=== PATIENT | female | born 1950 | race Caucasian/White ===

== ENCOUNTER 2017-12-11 10:18 | Outpatient (CLI) | payer MEDICARE, MEDICAID, SELFPAY ==
--- NOTE | 2017-12-11 10:10 | DI.REPORT_ITS ---
SYMPTOM/DIAGNOSIS: CHRONIC RT SIDED LOW BACK PAIN WITHOUT SCIATICA, M54.5 LUMBAR SPINE: AP, lateral and bilateral oblique views. There are five lumbar type vertebral bodies. There is normal alignment. No spondylolysis or spondylolisthesis is seen. Mild disc space narrowing is seen at L 3-4 and L 4-5. There are endplate osteophytes throughout the lumbar spine. Mild degenerative changes of the facets are seen at L 4-5 and L 5-S 1. Surgical clips are seen in the right upper quadrant of the abdomen. IMPRESSION: Mild degenerative changes of the lumbar spine.
== END 2017-12-11 10:19 ==
PROVIDERS: PCP Family Medicine; Visit Provider Internal Medicine
DX: M54.5 Low back pain (principal); G89.29 Other chronic pain; M47.817 Spondylosis without myelopathy or radiculopathy, lumbosacral region; M25.78 Osteophyte, vertebrae
CPT/HCPCS: 72110

== ENCOUNTER 2018-04-19 00:51 | Outpatient (CLI) | payer MEDICARE, MEDICAID, SELFPAY ==
--- NOTE | 2018-04-19 07:01 | MERGE_ITS ---
*[facility]* *[facility]* [address] [place] [address] Date of study: 04/19/2018 Transthoracic Echocardiography M-mode, complete 2D, complete spectral Doppler, and color Doppler *STUDY CONCLUSIONS* Summary: 1. Left ventricle: The cavity size was normal. Systolic function was normal. The estimated ejection fraction was 55-60%. Diastolic parameters were normal. There was no evidence of elevated ventricular filling pressure by Doppler parameters. 2. Mitral valve: There was mild regurgitation. 3. Right ventricle: The cavity size was normal. Wall thickness was normal. Systolic function was normal. 4. Atrial septum: No defect or patent foramen ovale was identified. 5. Pulmonary arteries: Pulmonary systolic pressure was in the range of 15mm Hg to 25mm Hg. 6. Inferior vena cava: The vessel was patent and normal in size. The respirophasic diameter changes were in the normal range (greater than or equal to 50%), consistent with normal central venous pressure. *PATIENT PRESENTATION* Height: 160cm ((63in) ) S/D Pressure: 122 / 76 Weight: 75.3kg ((165.7lb) ) BSA: 1.85m^2 Test start time: 07:46 AM. Test stop time: 08:40 AM. ORDERING Marino Swartz REFERRING Marino Swartz PERFORMING [facility] SPECIAL PROCEDURE TECH RT Joaquim (R)(PATRICK)CARIN *PROCEDURE DATA* Procedure information: The patient was identified by two identifiers. This study was interpreted by [facility]. Pertinent images and digital data are archived for permanent storage and are available for subsequent review. No prior study was available for comparison. Study status: Routine. Transthoracic echocardiography. M-mode, complete 2D, complete spectral Doppler, and color Doppler. A Transthoracic Echocardiogram was performed. Scanning was performed from the parasternal, apical, subcostal, and suprasternal notch acoustic windows. Images were obtained using an [id number] cardiac ultrasound machine. Image quality was adequate. Study completion: The patient tolerated the procedure well. History: PMH: Afib. *CARDIAC ANATOMY* Left ventricle: The cavity size was normal. Systolic function was normal. The estimated ejection fraction was 55-60%. The tissue Doppler parameters were normal. Diastolic parameters were normal. There was no evidence of elevated ventricular filling pressure by Doppler parameters. Aortic valve: Trileaflet. Doppler: There was no stenosis. There was no regurgitation. VTI ratio of LVOT to aortic valve: 0.64. Valve area (VTI): 1.9cm^2. Indexed valve area (VTI): 1cm^2/m^2. Peak velocity ratio of LVOT to aortic valve: 0.62. Valve area (Vmax): 1.8cm^2. Indexed valve area (Vmax): 1cm^2/m^2. Mean velocity ratio of LVOT to aortic valve: 0.73. Valve area (Vmean): 2.1cm^2. Indexed valve area (Vmean): 1.2cm^2/m^2. Mean gradient (S): 4.3mm Hg. Peak gradient (S): 9.3mm Hg. Aorta: Aortic root: The aortic root was normal in size. Ascending aorta: The ascending aorta was normal in size. Mitral valve: Doppler: There was no evidence for stenosis. There was mild regurgitation. Valve area by pressure half-time: 3.7cm^2. Indexed valve area by pressure half-time: 2cm^2/m^2. Left atrium: The atrium was normal in size. Atrial septum: No defect or patent foramen ovale was identified. Right ventricle: The cavity size was normal. Wall thickness was normal. Systolic function was normal. Pulmonic valve: Doppler: There was no evidence for stenosis. There was mild regurgitation. Peak gradient (S): 2.5mm Hg. Tricuspid valve: Doppler: There was mild regurgitation. Pulmonary artery: Poorly visualized. Pulmonary systolic pressure was in the range of 15mm Hg to 25mm Hg. Right atrium: The atrium was normal in size. Pericardium: There was no pericardial effusion. Systemic veins: Inferior vena cava: Well visualized. The vessel was patent and normal in size. The respirophasic diameter changes were in the normal range (greater than or equal to 50%), consistent with normal central venous pressure. Baseline ECG: Normal sinus rhythm. Measurements Left ventricle Value Reference LV ID, ED, PLAX 4.5 cm 3.5 - 6.0 LV ID, ES, PLAX 3.3 cm 2.1 - 4.0 LV PW thickness, ED, PLAX 0.9 cm LV end-diastolic volume, 1-p A2C 73 ml LV ejection fraction, 1-p A2C 59 % LV end-diastolic volume, 1-p A4C 75 ml LV ejection fraction, 1-p A4C 52 % LV e', lateral 0.092 m/sec LV E/e', lateral 8 LV e', medial 0.081 m/sec LV E/e', medial 9 LV e', average 0.086 m/sec LV E/e', average 8 Ventricular septum Value Reference IVS thickness, ED, PLAX 0.9 cm LVOT Value Reference LVOT ID, A-P 1.9 cm LVOT area 2.9 cm^2 LVOT peak velocity, S 0.94 m/sec LVOT mean velocity, S 0.69 m/sec LVOT VTI, S 21.2 cm LVOT peak gradient, S 3.5 mm Hg LVOT mean gradient, S 2.1 mm Hg Stroke volume (SV), LVOT DP 62 ml Stroke index (SV/bsa), LVOT DP 34 ml/m^2 Aortic valve Value Reference Aortic valve peak velocity, S 1.5 m/sec Aortic valve mean velocity, S 0.95 m/sec Aortic valve VTI, S 33.0 cm Aortic mean gradient, S 4.3 mm Hg Aortic peak gradient, S 9.3 mm Hg VTI ratio, LVOT/AV 0.64 Aortic valve area, VTI 1.9 cm^2 Velocity ratio, peak, LVOT/AV 0.62 Aortic valve area, peak velocity 1.8 cm^2 Velocity ratio, mean, LVOT/AV 0.73 Aortic valve area, mean velocity 2.1 cm^2 Aortic valve area/bsa, mean velocity 1.2 cm^2/m^2 Aorta Value Reference Aortic root ID, ED 2.6 cm Ascending aorta ID, A-P, S 3.1 cm Left atrium Value Reference LA ID, A-P, ES 3.3 cm LA ID/bsa, A-P 1.8 cm/m^2 <=2.2 LA area, ES, A4C 16 cm^2 8.8 - 23.4 LA area, ES, A2C 16 cm^2 LA volume/bsa, ES, 1-p A4C 23 ml/m^2 LA volume, ES, 2-p 39 ml LA volume/bsa, ES, 2-p 21 ml/m^2 LA/aortic root ratio 1.27 Mitral valve Value Reference Mitral E-wave peak velocity 0.7 m/sec Mitral A-wave peak velocity 0.8 m/sec Mitral deceleration time 204 ms 150 - 230 Mitral pressure half-time 59 ms Mitral E/A ratio, peak 0.88 Mitral valve area, PHT, DP 3.7 cm^2 Pulmonary veins Value Reference Pulmonary vein peak velocity, S 0.47 m/sec Pulmonary vein peak velocity, D 0.35 m/sec Pulmonary vein velocity ratio, peak, 1.35 S/D Pulmonary vein A-wave reversal peak 0.33 m/sec velocity Pulmonary vein A-wave reversal 133 ms duration Tricuspid valve Value Reference Tricuspid regurg peak velocity 2.2 m/sec Tricuspid peak RV-RA gradient 18.9 mm Hg Right atrium Value Reference RA area, ES, A4C 11.1 cm^2 8.3 - 19.5 Pulmonic valve Value Reference Pulmonic peak gradient, S 2.5 mm Hg Legend: (L) and (H) tammy values outside specified reference range. I have personally reviewed the images and have reviewed and edited the reported findings. Electronically signed by Vazquez Ibrahim MD 04/19/2018 10:16
== END 2018-04-19 01:11 ==
PROVIDERS: PCP Family Medicine; Visit Provider Family Medicine
DX: I48.91 Unspecified atrial fibrillation (principal); I34.0 Nonrheumatic mitral (valve) insufficiency
CPT/HCPCS: 93225; 93306

== ENCOUNTER 2018-04-19 02:47 | Outpatient (CLI) | payer MEDICARE, MEDICAID, SELFPAY ==
--- NOTE | 2018-05-11 10:25 | ZIOP_ITS ---
ZIO PATCH REPORT DATE OF DICTATION May 11, 2018 INDICATION Muscle weakness. ANALYSIS TIME 11 days and 12 hours. FINDINGS Predominant underlying rhythm is sinus rhythm. Average heart rate 77 beats per minute. Minimum heart rate 52 beats per minute. Max heart rate 126 beats per minute. First-degree AV block present throughout. 4 short bursts of SVT. The longest lasting 6 beats. Otherwise rare isolated atrial ectopy. Rare isolated ventricular ectopy. No nonsustained VT. No significant pauses or jose luis arrhythmias. No patient triggered events and no diary entries. Artur Lira M.D. VINCE/maria de jesus T-05/11/2018
== END 2018-04-19 03:07 ==
PROVIDERS: PCP Family Medicine; Visit Provider Family Medicine
DX: M62.81 Muscle weakness (generalized) (principal); I44.0 Atrioventricular block, first degree; I47.1 Supraventricular tachycardia
CPT/HCPCS: 93225

== ENCOUNTER 2018-05-11 09:59 | Outpatient (CLI) | payer MEDICARE, MEDICAID, SELFPAY | END 2018-05-11 10:19 | PROVIDERS: PCP Family Medicine; Referring Provider Family Medicine; Visit Provider Internal Medicine Cardiovascular Disease | DX: M62.81 Muscle weakness (generalized) (principal); I44.0 Atrioventricular block, first degree; I47.1 Supraventricular tachycardia | CPT/HCPCS: 0298T ==

== ENCOUNTER 2018-06-07 01:01 | Outpatient (CLI) | payer MEDICARE, MEDICAID, SELFPAY ==
[2018-06-07 12:24] LABS: CREATININE 0.64 mg/dL (0.55-1.02)
== END 2018-06-07 01:21 ==
PROVIDERS: PCP Family Medicine; Visit Provider Family Medicine
DX: I48.91 Unspecified atrial fibrillation (principal)
CPT/HCPCS: 36415; 82565

== ENCOUNTER 2018-10-08 07:24 | Outpatient (CLI) | payer MEDICARE, MEDICAID, SELFPAY ==
--- NOTE | 2018-10-08 13:30 | DI.MAMMO_ITS ---
SYMPTOM/DIAGNOSIS: SCREENING BILATERAL SCREENING MAMMOGRAM: Mammograms were interpreted according to the usual protocol including computer analysis with CAD system, tomosynthesis and C view imaging. Comparison is made with exams from 2014 through 2018. The breasts are composed of extremely dense fibroglandular tissue, breast density Category D. No suspicious masses or suspicious microcalcifications are seen. There has been no significant change. IMPRESSION: Category 1, negative mammogram. Yearly screening mammography is recommended. Breast density category D. SA ASSESSMENT OF FINDINGS: Negative. Category 1. Patient will receive a letter notifying them of these results. BI-RADS category D. The breasts are extremely dense, which lowers the sensitivity of mammography.
== END 2018-10-08 07:44 ==
PROVIDERS: PCP Family Medicine; Visit Provider Family Medicine
DX: Z12.31 Encounter for screening mammogram for malignant neoplasm of breast (principal)
CPT/HCPCS: 77063; 77067

== ENCOUNTER 2019-04-09 08:52 | Outpatient (CLI) | payer MEDICARE, SELFPAY ==
[2019-04-09 10:18] LABS: Absolute Basophil Count 0.06 k/cumm (0.0-0.2); Absolute Lymphocyte Count 2.67 k/cumm (1.2-3.4); Absolute Monocyte Count 0.61 k/cumm (0.11-0.7); Basophils % 1.1; Eosinophils % 3.6; HCT 45.3 % (36.0-46.0); HGB 14.4 g/dL (12.0-15.5); Lymphocytes % 48.2; Mean Corp. HGB Concentration 31.8 g/dL (32.0-36.0); Mean Corpuscular Hemoglobin 32.4 pg (27.0-33.0); Mean Platelet Volume 10.6 fL (8.0-11.0); Neutrophils % 36.1; Platelet Count 188 x1000/uL (130-400); RBC 4.44 m/cumm (4.00-5.20); White Blood Cell Count 5.54 k/cumm (4.4-10.8)
[2019-04-09 10:58] LABS: Anion Gap 6.4 mmol/L (3-11); BUN 11 mg/dL (7-18); CO2 32.6 mmol/L (21.0-32.0); CREATININE 0.64 mg/dL (0.55-1.02); Calcium 9.3 mg/dL (8.5-10.1); Calculated LDL 142 mg/dL; Chloride 105 mmol/L (98-107); Cholesterol 236 mg/dL (<200); Glucose 101 mg/dL (74-106); HDL Cholesterol 57 mg/dL (40-60); Sodium 144 mmol/L (136-145); Triglyceride 187 mg/dL (<150)
== END 2019-04-09 09:12 ==
PROVIDERS: PCP Family Medicine; Visit Provider Family Medicine
DX: E78.5 Hyperlipidemia, unspecified (principal); R42 Dizziness and giddiness
CPT/HCPCS: 36415; 80048; 80061; 85025

== ENCOUNTER 2019-10-31 01:24 | Outpatient (CLI) | payer MEDICARE, SELFPAY ==
--- NOTE | 2019-10-31 11:00 | DI.MAMMO_ITS ---
EXAM: MG MAMMO SCREENING CLINICAL HISTORY: screening Z12.39 TECHNIQUE: Mammograms were interpreted according to the usual protocol including computer analysis w [employer] CAD system, tomosynthesis and C-view imaging. COMPARISON: FINDINGS: The breasts are heterogeneously dense. No dominant mass or clumped microcalcification is identified in either breast. Current examination is compared with previous examinations including September 2018 and there has no gross interval change appearance comparison previous studies. IMPRESSION: No specific evidence of malignancy at this time. Routine screening examinations are suggested at yea rly intervals this age according to the ACS ACR guidelines BI-RADS Category 1 - Negative Breast Density - Category C - Heterogeneously dense
== END 2019-10-31 01:44 ==
PROVIDERS: PCP Family Medicine; Visit Provider Family Medicine
DX: Z12.31 Encounter for screening mammogram for malignant neoplasm of breast (principal)
CPT/HCPCS: 77063; 77067

== ENCOUNTER → 2019-11-01 08:42 | Outpatient (BNVA) | payer MEDICARE, SELFPAY | PROVIDERS: PCP Family Medicine; Referring Provider Family Medicine; Visit Provider Physical Therapy Assistant | DX: R19.4 Change in bowel habit (principal) | CPT/HCPCS: 99203 ==

== ENCOUNTER 2019-11-02 14:21 | Outpatient (REF) | payer MEDICARE, SELFPAY ==
[2019-11-05 12:00] LABS: Campylobacter PCR Negative (Negative); Salmonella PCR Negative (Negative); Shiga Toxin PCR Negative (Negative); Shigella/Enteroinvasive Ecoli Negative (Negative)
== END 2019-11-02 14:41 ==
LOC: LBN 14:21
PROVIDERS: PCP Family Medicine; Visit Provider Physical Therapy Assistant
DX: R19.4 Change in bowel habit (principal)
CPT/HCPCS: 87505; 87177

== ENCOUNTER 2020-01-24 19:51 | Emergency (ER) | payer MEDICARE, SELFPAY ==
[2020-01-24] VITALS (25 sets, daily range): BP systolic 99–134; BP diastolic 62–97; PULSE 62–83; RESP 9–30; TEMP 36.9; O2SAT 88–97
--- NOTE | 2020-01-24 19:45 | DI.CT_ITS ---
EXAM: CT ABDOMEN PELVIS W CLINICAL HISTORY: abdominal pain and diarrhea TECHNIQUE: Imaging Protocol: Axial computed tomography images with coronal and sagittal reformatted images were created and reviewed CONTRAST MATERIAL: Intravenous: Omnipaque 350 Contrast volume:100 mL Oral: Yes COMPARISON: No exams were available for comparison FINDINGS: ABDOMEN: Lung Bases: Normal where visualized. Liver: Normal density. No measurable mass. Portal, Superior Mesenteric, and Splenic Veins: Unremarkable. Gallbladder and Biliary Tract: Status post cholecystectomy. No significant biliary ductal dilatation . Pancreas: Normal density, no abnormal calcifications or inflammatory process. Spleen: Normal. Adrenals: No masses seen. Kidneys: Normal size, contour and axis. No radiodense stones or obstructive uropathy. No masses seen. Abdominal Aorta: Abdominal portion non-dilated. Minimal atherosclerosis. Bowel: No evidence of obstruction. Mild bowel wall thickening seen in the sigmoid colon suggesting c olitis. No evidence of diverticulosis. No evidence of acute appendicitis. Peritoneal Cavity: No ascites or focal fluid collection. Mild mesenteric edema. Lymph Nodes: Within normal limits. Bones: Degenerative changes. Soft Tissues: Unremarkable. PELVIS: Bladder: Symmetric distention, no gross wall thickening. Reproductive Organs: Status post hysterectomy. Lymph Nodes: Within normal limits. Bones: Negative changes. IMPRESSION: Mild sigmoid colitis. RADIATION DOSE DELIVERED: 893.33mGy.cm Total DLP DATA REPOSITORY: All CT scans at this facility are submitted to the National Radiology Data Registry (NRDR) Dose Index Registry (DIR) with the [employer] (ACR). RADIATION OPTIMIZATION: All CT scans at this facility use at least one of these dose optimization te chniques: automated exposure control; mA and/or kV adjustment per patient size (includes targeted exa ms where dose is matched to clinical indication); or iterative reconstruction.
--- NOTE | 2020-01-24 20:20 | NUR.NOTE ---
Nursing Note: Started drinking PO contrast.
[2020-01-24 20:26] LABS: Absolute Basophil Count 0.05 10^3/uL (0.0-0.2); Absolute Eosinophil Count 0.15 10^3/uL (0.0-0.7); Absolute Lymphocyte Count 1.43 10^3/uL (1.2-3.4); Absolute Monocyte Count 0.46 10^3/uL (0.1-0.8); Absolute Neutrophil Count 2.67 10^3/uL (1.2-6.7); Basophils % 1.1; Eosinophils % 3.2; HCT 44.8 % (36.0-46.0); HGB 14.5 g/dL (11.2-15.7); MCH 32.4 pg (27.0-33.0); MCHC 32.4 % (32.0-36.0); MCV 100.2 fL (80-95); MPV 10.5 fL (8.0-11.0); Monocytes % 9.7; Nucleated RBC 0 %; Platelet Count 172 10^3/uL (130-400); RBC 4.47 10^6/uL (3.93-5.22); RDW 12.7 % (11.7-14.6); RDW-SD 47.1 fL; WBC 4.76 10^3/uL (4.4-10.8)
[2020-01-24] MEDS: Normal Saline 1,000 ML 1000 ML IV (20:31)
[2020-01-24] MEDS: Ondansetron 4 MG/2 ML VIAL IVP (20:32)
[2020-01-24 20:36] LABS: Bilirubin Negative (Negative); Blood Negative (Negative); Clarity Clear (Clear); Glucose Negative (Negative); Ketones Negative (Negative); Leukocyte Esterase Negative (Negative); Nitrite Negative (Negative); Specific Gravity <= 1.005 (1.005-1.025); Urobilinogen 0.2 EU/dL (Up TO 0.2)
[2020-01-24 20:39] LABS: ALT 28 U/L (14-59); AST 20 U/L (15-37); Albumin 3.5 g/dL (3.4-5.0); Alkaline Phosphatase 179 U/L (46-116); Anion Gap 7.4 mmol/L (3-11); BUN 15 mg/dL (7-18); Bilirubin, Total 0.4 mg/dL (0.2-1.0); CO2 28.6 mmol/L (21.0-32.0); CREATININE 0.88 mg/dL (0.55-1.02); Calcium 9.3 mg/dL (8.5-10.1); Chloride 105 mmol/L (98-107); Glucose 113 mg/dL (74-106); Lipase 99 U/L (73-393); Magnesium 2.4 mg/dL (1.8-2.4); Potassium 3.6 mmol/L (3.5-5.1); Sodium 141 mmol/L (136-145); Total Protein 7.1 g/dL (6.4-8.2)
[2020-01-24] MEDS: Normal Saline Flush 10 ML SYR IVP (21:30)
[2020-01-24] MEDS: Omnipaque 350 MG/ML 100 ML BTL IJ (21:41)
[2020-01-24] MEDS: Normal Saline - Diluent 50 ML VIAL IV (21:41)
[2020-01-24] MEDS: Omnipaque 350 MG/ML 50 ML BTL PO (21:42)
[2020-01-24] MEDS: Breeza Beverage 473 ML BTL PO ×2 (21:42→21:43)
--- NOTE | 2020-01-24 22:10 | NUR.NOTE ---
Nursing Note: Patient ambulated to the bathroom without difficulty. Urine and stool were mixed in the hat. No darleen red blood noted . Stool was diarrhea. Will give patient supplies to collect stool specimen at home.
--- NOTE | 2020-01-24 22:11 | ED.GENADUL_ITS ---
Discharge Plan Disposition Patient Disposition: HOME Condition: Fair Discharge Details Clinical Impression: Colitis Primary Care Provider: Marino Swartz ED Provider: Zoë Molina Home Meds and New Rx's Prescriptions: New ciprofloxacin HCl 500 mg tablet 500 mg PO BID Qty: 12 RF: 0 metronidazole [Flagyl] 500 mg tablet 500 mg PO TID Qty: 18 RF: 0 Continued Eliquis 5 mg tablet 5 mg PO BID Qty: 180 RF: 3 multivitamin [Once Daily] 1 EACH tablet 1 ea PO DAILY RF: 0 cyanocobalamin (vitamin B-12) [Vitamin B-12] 1,000 MCG tablet 1,000 mcg PO DAILY RF: 0 omega-3 fatty acids-fish oil 1 EACH capsule 2 ea PO DAILY RF: 0 calcium carbonate-vitamin D3 [Caltrate with Vitamin D3] 1 EACH tablet 1 ea PO DAILY RF: 0 omeprazole 20 mg capsule,delayed release(DR/EC) 20 mg PO DAILY Qty: 90 RF: 3 cholecalciferol (vitamin D3) [Vitamin D3] 2,000 UNIT capsule 4,000 units PO DAILY RF: 0 Discharge Instructions Instructions: Colitis (ED) Additional Instructions: Take antibiotics as prescribed even if you feel better Collect stool as instructed and bring to lab as directed Drink at least 8 glasses of water daily to stay well-hydrated Return sooner for new or worsening symptoms Referrals: Ivanna Lyn DO [OSTEOPATHIC DOCTOR] - Medical Decision Making Patient presents with symptoms consistent with diverticulitis/colitis. IV is established given IV fluid bolus of normal saline Zofran 4 mg given for nausea. Routine lab and CAT scan ordered with oral and IV contrast. labs reviewed, CAT scan does show mild sigmoid colitis. tolerating good PO. will discharge home on cipro/flagyl Medical Records Medical records reviewed: Yes I reviewed the patient's medical records. Lab Data Lab results reviewed: Yes I reviewed the patient's lab results. Lab results narrative: Laboratory Results - last 24 hr 01/24/20 01/24/20 01/24/20 20:00 20:15 20:15 WBC 4.76 RBC 4.47 Hgb 14.5 Hct 44.8 MCV 100.2 H MCH 32.4 MCHC 32.4 RDW 12.7 Plt Count 172 MPV 10.5 Immature Gran % 0.0 Neutrophils % 56.0 Lymphocytes % 30.0 Monocytes % 9.7 Eosinophils % 3.2 Basophils % 1.1 Nucleated RBC % 0 Absolute Neutrophils 2.67 Absolute Lymphocytes 1.43 Absolute Monocytes 0.46 Absolute Eosinophils 0.15 Absolute Basophils 0.05 Sodium 141 Potassium 3.6 Chloride 105 Carbon Dioxide 28.6 Anion Gap 7.4 BUN 15 Creatinine 0.88 Estimated GFR/1.73 m2 >= 60.00 Glucose 113 H Calcium 9.3 Magnesium 2.4 Total Bilirubin 0.4 AST 20 ALT 28 Alkaline Phosphatase 179 H Total Protein 7.1 Albumin 3.5 Lipase 99 Urine Color Yellow Urine Clarity Clear Urine pH 6.0 Ur Specific Deloit <= 1.005 Urine Protein Negative Urine Ketones Negative Urine Blood Negative Urine Nitrite Negative Urine Bilirubin Negative Urine Urobilinogen 0.2 Ur Leukocyte Esterase Negative Urine Glucose Negative HPI General Date/Time Provider Initiated Documentation: 01/24/20 19:54 . Information obtained by: patient . HPI Narrative: Patient presents with several day history of diarrhea abdominal cramping distention and nausea. She has had no fevers. She states she has had GI issues in the past and did see [facility] but did not have any colonoscopy or further testing. She reports that she is now starting to have bloody diarrhea. Most of her pain is left sided. She has no recent sick contacts with similar symptoms. Related Data Home Medications Medication Instructions Recorded Confirmed calcium carbonate-vitamin D3 1 ea PO DAILY 11/23/12 01/24/20 [Caltrate with Vitamin D3] cyanocobalamin (vitamin B-12) 1,000 mcg PO DAILY 11/23/12 01/24/20 [Vitamin B-12] multivitamin [Once Daily] 1 ea PO DAILY 11/23/12 01/24/20 omega-3 fatty acids-fish oil 2 ea PO DAILY 11/23/12 01/24/20 cholecalciferol (vitamin D3) 4,000 units PO DAILY 02/04/13 01/24/20 [Vitamin D3] omeprazole 20 mg capsule,delayed 20 mg PO DAILY #90 tab-cap 06/15/19 01/24/20 release apixaban 5 mg tablet 5 mg PO BID #180 tab 12/11/19 01/24/20 ciprofloxacin HCl 500 mg PO BID #12 tab 01/24/20 metronidazole [Flagyl] 500 mg PO TID #18 tab 01/24/20 Previous Rx's Medication Instructions Recorded omeprazole 20 mg capsule,delayed 20 mg PO DAILY #90 tab-cap 06/15/19 release apixaban 5 mg tablet 5 mg PO BID #180 tab 12/11/19 ciprofloxacin HCl 500 mg PO BID #12 tab 01/24/20 metronidazole [Flagyl] 500 mg PO TID #18 tab 01/24/20 Allergies Allergy/AdvReac Type Severity Reaction Status Date / Time codeine Allergy Severe Anaphylaxsi Verified 01/24/20 20:11 s gabapentin Allergy Severe Decreased Verified 01/24/20 20:11 level of consciousness baclofen AdvReac Severe SEVERE Verified 01/24/20 20:11 MUSCLE WEAKNESS prednisone AdvReac Severe DIARRHEA Verified 01/24/20 20:11 lamotrigine [From Lamictal] AdvReac Intermediate GI Upset, Verified 01/24/20 20:11 Diarrhea General Stated Complaint: Abd Prob VENUS: 2 Review of Systems Constitutional Constitutional: Reports system reviewed and no additional complaints, except as documented Gastrointestinal Gastrointestinal: Reports hematochezia, Denies constipation, Reports diarrhea, Reports loose stools, Reports nausea and Denies vomiting Genitourinary Genitourinary: Denies dysuria Musculoskeletal Musculoskeletal: Denies back pain [facility] Medical History Cataract Dizziness Fatigue GERD (gastroesophageal reflux disease) Granuloma annulare Myotonic muscular dystrophy SHANNAN (obstructive sleep apnea) Tinnitus Surgical History Cholecystectomy Colonoscopy - [facility] (01/22/16) 01/14/11; DR. FAUSTIN Extraction of cataract (02/01/13) 02/01/13; RIGHT 01/27/15; LEFT Tonsillectomy Vaginal hysterectomy partial colectomy due to endometriosis Family History Mother , 85 Essential hypertension Heart disease Hyperlipidemia Father , 71 Neoplasm LUNG Myotonic muscular dystrophy Brother Essential hypertension Hyperlipidemia Diverticulosis Grandfather Heart disease Myocardial infarction Grandmother Heart disease Grandmother Myotonic muscular dystrophy STRONG PATERNAL HISTORY Myotonic muscular dystrophy UNCLES, AUNTS, BROTHERS AND COUSINS Brother No problems noted. Brother High cholesterol Social History Smoking/Tobacco Use Status: Former Tobacco Use Quit Date: 03/01/07 Alcohol Intake: current Alcohol Intake frequency: holidays/special occasions only Alcohol type: beer Drug use: Never Substance use type: does not use Caregiver/Support person: No Housing: house Communication Needs: None Do you need help understanding health information?: Rarely Pets and animals: Yes Pets and animals: cat(s) and dog(s) Do you think of yourself as: lesbian/palacois/homosexual What is your relationship status?: never How often do you talk on the phone with friends or family?: three or more times per week Do you belong to any clubs or organized social groups?: yes Panel score (0-1 are the most socially isolated patients): 2 What type of physical activity do you participate in: other Details: aquatic therapy Duration: 45-60 minutes/day Frequency: 1-2 times per week Veda/Voodoo: Synagogue Special veda needs: No Seatbelt use: always Drive intox or ride w/intox contract driver: No Do you feel safe at home: Yes Do you feel safe in your relationship?: Yes Exam Const General: cooperative, healthy appearing, comfortable and no acute distress Nutritional Appearance: average body habitus Orientation: alert, awake and oriented x3 HENMT Head: normal to inspection, normocephalic and atraumatic Mouth: oral mucosae normal Resp Effort & Inspection: normal respiratory effort Auscultation: clear to auscultation bilaterally Cardio Rate: regular rate Rhythm: regular rhythm GI Inspection: distended Palpation: soft Auscultation: normal bowel sounds Skin General skin exam: no rashes or lesions noted Neuro General: patient alert, patient awake and patient oriented x3 Course Vital Signs Vital signs: Vital Signs Temperature 36.9 C 01/24/20 20:03 Pulse 83 01/24/20 20:03 Respiratory Rate 16 01/24/20 20:03 Blood Pressure 134/75 01/24/20 20:03 Pulse Oximetry 97 01/24/20 20:03 Temperature 36.9 C 01/24/20 20:03 Temperature Source Oral 01/24/20 20:03 Pulse 62 01/24/20 21:16 Pulse 63 01/24/20 21:20 Respiratory Rate 13 01/24/20 21:20 Respiratory Effort Non-Labored 01/24/20 20:09 Blood Pressure 107/80 01/24/20 21:16 Blood Pressure Mean 86 01/24/20 21:16 Blood Pressure Position Sitting 01/24/20 20:03 Pulse Oximetry 96 01/24/20 21:20 Oxygen Delivery Method Room Air 01/24/20 20:03 Oxygen Flow Rate 0 01/24/20 20:03 Pain Level 5 01/24/20 20:03 Lab/Test Results Lab/Test Results: Laboratory Tests Range/Units 01/24/20 01/24/20 01/24/20 20:00 20:15 20:15 WBC (4.4-10.8) 10^3/uL 4.76 RBC (3.93-5.22) 10^6/uL 4.47 Hgb (11.2-15.7) g/dL 14.5 Hct (36.0-46.0) % 44.8 MCV (80-95) fL 100.2 H MCH (27.0-33.0) pg 32.4 MCHC (32.0-36.0) % 32.4 RDW (11.7-14.6) % 12.7 Plt Count (130-400) 10^3/uL 172 MPV (8.0-11.0) fL 10.5 Immature Gran % 0.0 Neutrophils % 56.0 Lymphocytes % 30.0 Monocytes % 9.7 Eosinophils % 3.2 Basophils % 1.1 Nucleated RBC % % 0 Absolute Neutrophils (1.2-6.7) 10^3/uL 2.67 Absolute Lymphocytes (1.2-3.4) 10^3/uL 1.43 Absolute Monocytes (0.1-0.8) 10^3/uL 0.46 Absolute Eosinophils (0.0-0.7) 10^3/uL 0.15 Absolute Basophils (0.0-0.2) 10^3/uL 0.05 Sodium (136-145) mmol/L 141 Potassium (3.5-5.1) mmol/L 3.6 Chloride (98-107) mmol/L 105 Carbon Dioxide (21.0-32.0) mmol/L 28.6 Anion Gap (3-11) mmol/L 7.4 BUN (7-18) mg/dL 15 Creatinine (0.55-1.02) mg/dL 0.88 Estimated GFR/1.73 m2 (mL/min/1.73m2) >= 60.00 Glucose (74-106) mg/dL 113 H Calcium (8.5-10.1) mg/dL 9.3 Magnesium (1.8-2.4) mg/dL 2.4 Total Bilirubin (0.2-1.0) mg/dL 0.4 AST (15-37) U/L 20 ALT (14-59) U/L 28 Alkaline Phosphatase (46-116) U/L 179 H Total Protein (6.4-8.2) g/dL 7.1 Albumin (3.4-5.0) g/dL 3.5 Lipase (73-393) U/L 99 Urine Color (Yellow) Yellow Urine Clarity (Clear) Clear Urine pH (5-8) 6.0 Ur Specific Deloit (1.005-1.025) <= 1.005 Urine Protein (Negative) mg/dL Negative Urine Ketones (Negative) mg/dL Negative Urine Blood (Negative) Negative Urine Nitrite (Negative) Negative Urine Bilirubin (Negative) Negative Urine Urobilinogen (Up TO 0.2) EU/dL 0.2 Ur Leukocyte Esterase (Negative) Negative Urine Glucose (Negative) mg/dL Negative
[2020-01-24] MEDS: metroNIDAZOLE 500 MG TAB, 3 TABS/BTL 1500 MG (22:41)
--- NOTE | 2020-01-30 16:03 | DI.VRAD_ITS ---
PROCEDURE INFORMATION: Exam: CT Abdomen And Pelvis With Contrast Exam date and time: 01/24/2020 21:33 Age: 69 years old Clinical indication: Other: Abdominal pain and diarrhea TECHNIQUE: Imaging protocol: Computed tomography of the abdomen and pelvis with intravenous contrast. Contrast material: OMNIPAQUE 350; Contrast volume: 100 ml; Contrast route: INTRAVENOUS (IV); Other contrast: Oral, Omnipaque 350 , 50; COMPARISON: No relevant prior studies available. FINDINGS: Liver: No hepatic masses. Gallbladder and bile ducts: Cholecystectomy. Mild intrahepatic and extrahepatic biliary dilation most compatible with benign so-called reservoir effect in the setting of cholecystectomy. Pancreas: No ductal dilation. No masses. Spleen: No splenomegaly or focal lesions. Adrenals: No mass. Kidneys and ureters: No hydronephrosis. No renal masses. Stomach and bowel: Mild sigmoid colitis. Fluid more distal than expected in the sigmoid colon consistent with the history of diarrhea. No convincing wall thickening in the remainder of the colon for the degree of distension. Probable areas of submucosal fat deposition. No significant diverticular disease. No focal pathology in the small bowel. No ischemia or pneumatosis. Appendix: No evidence of appendicitis. Intraperitoneal space: No free fluid or free air. Vasculature: No abdominal aortic aneurysm. Lymph nodes: Minor densities in the root of the small bowel mesentery with no associated adenopathy. Minor mesenteric edema is suggested. No significant retroperitoneal or iliac adenopathy. Urinary bladder: Unremarkable as visualized. Reproductive: Hysterectomy. Bones/joints: Degenerative changes in the spine. No acute fracture or subluxation. Soft tissues: No suspicious lesions. IMPRESSION: 1. Mild sigmoid colitis. 2. Fluid more distal than expected in the sigmoid colon consistent with the history of diarrhea. 3. Incidental findings as described. Dictated and Authenticated by: Melvi Chaves MD. Ordering:EVANS Camp MD
== END 2020-01-24 22:45 | disposition home or self-care (01) ==
PROVIDERS: Emergency Provider Nurse Practitioner Acute Care; PCP Family Medicine
DX: R14.0 Abdominal distension (gaseous) (principal); K52.9 Noninfective gastroenteritis and colitis, unspecified; R19.7 Diarrhea, unspecified
CPT/HCPCS: 36415; 80053; 83690; 96361; 96374; 99285; 74177; 81003; 83735; 85025; 99284; J2405; J3490; Q9967

== ENCOUNTER 2020-01-26 19:22 | Outpatient (REF) | payer MEDICARE, SELFPAY ==
[2020-01-26 12:40] LABS: C Diff PCR Negative (Negative)
[2020-02-01 11:59] LABS: Campylobacter PCR Negative (Negative); Salmonella PCR Negative (Negative); Shiga Toxin PCR Negative (Negative); Shigella/Enteroinvasive Ecoli Negative (Negative)
== END 2020-01-26 19:42 ==
LOC: LBN 19:22
PROVIDERS: PCP Family Medicine; Visit Provider Nurse Practitioner Acute Care
DX: R19.7 Diarrhea, unspecified (principal); K52.9 Noninfective gastroenteritis and colitis, unspecified
CPT/HCPCS: 87329; 87493; 87505; 82272; 83630; 87177; 87324

== ENCOUNTER 2020-01-27 10:25 | Emergency (ER) | payer MEDICARE, SELFPAY ==
[2020-01-27] VITALS (36 sets, daily range): BP systolic 114–150; BP diastolic 70–86; PULSE 62–92; RESP 9–27; TEMP 36.3–36.4; O2SAT 85–95
--- NOTE | 2020-01-27 10:30 | RT.EKG_ITS ---
APPROVED REPORT Exam: Resting ECG Patient Location: E HR:69 bpm ECG Measurements Heart Rate 69 AXIS ME 139 P -24 QRSd 79 QRS 51 QT 384 T 53 QTc 411 Conclusion Sinus rhythm...normal P axis, V-rate 60- 99
[2020-01-27 10:54] LABS: Absolute Basophil Count 0.04 10^3/uL (0.0-0.2); Absolute Eosinophil Count 0.17 10^3/uL (0.0-0.7); Absolute Lymphocyte Count 1.77 10^3/uL (1.2-3.4); Absolute Monocyte Count 0.51 10^3/uL (0.1-0.8); Absolute Neutrophil Count 1.42 10^3/uL (1.2-6.7); Eosinophils % 4.3; HCT 43.1 % (36.0-46.0); HGB 13.8 g/dL (11.2-15.7); Lymphocytes % 45.3; MPV 10.6 fL (8.0-11.0); Neutrophils % 36.4; Nucleated RBC 0 %; Platelet Count 170 10^3/uL (130-400); RBC 4.31 10^6/uL (3.93-5.22); RDW 12.7 % (11.7-14.6); RDW-SD 47.8 fL; WBC 3.91 10^3/uL (4.4-10.8)
[2020-01-27 11:12] LABS: ALT 36 U/L (14-59); AST 40 U/L (15-37); Albumin 3.2 g/dL (3.4-5.0); Alkaline Phosphatase 128 U/L (46-116); Anion Gap 7.6 mmol/L (3-11); BUN 7 mg/dL (7-18); Bilirubin, Total 0.3 mg/dL (0.2-1.0); CO2 29.4 mmol/L (21.0-32.0); CREATININE 0.81 mg/dL (0.55-1.02); Calcium 8.8 mg/dL (8.5-10.1); Chloride 105 mmol/L (98-107); Glucose 112 mg/dL (74-106); Magnesium 2.1 mg/dL (1.8-2.4); Potassium 3.4 mmol/L (3.5-5.1); Sodium 142 mmol/L (136-145); Total Protein 6.5 g/dL (6.4-8.2)
[2020-01-27] MEDS: Metoclopramide 10 MG/2 ML VIAL IVP (11:15)
[2020-01-27] MEDS: Lactated Ringers 1,000 ML 1000 ML IV (11:15)
--- NOTE | 2020-01-27 11:38 | DI.CT_ITS ---
EXAM: CT CHEST PE CTA CLINICAL HISTORY: shortness of breath. TECHNIQUE: Imaging Protocol: Axial CT angiography was performed with multi-slice acquisition and mu lti-planar and/or 3D reconstructions. CONTRAST MATERIAL: Intravenous: Omnipaque 350 Contrast volume:67 mL COMPARISON: CT CHEST - LUNG CANCER SCREENING from 08/05/[address] ABDOMEN PELVIS W from 01/24/2020 FINDINGS: Pulmonary Arteries: No evidence of filling defect to suggest pulmonary emboli. Tracheobronchial tree: Patent where visualized. Mediastinum and Maddison: No dominant adenopathy or fluid collection. Pulmonary parenchyma: No consolidation or dominant measurable mass. No architectural distortion. Pleura: No effusion or pneumothorax. Heart: The heart is not dilated. No coronary artery calcifications are seen. No significant pericardi al effusion. Aorta: Thoracic aorta non-dilated. Atherosclerosis. Upper abdomen: Unremarkable. Bones: Degenerative changes. Soft tissues: Unremarkable. IMPRESSION: No evidence of pulmonary embolism, thoracic aortic dissection or aneurysm. Findings were discussed with the emergency department on the date of the examination. RADIATION DOSE DELIVERED: 354.27mGy.cm Total DLP DATA REPOSITORY: All CT scans at this facility are submitted to the National Radiology Data Registry (NRDR) Dose Index Registry (DIR) with the [employer] (ACR). RADIATION OPTIMIZATION: All CT scans at this facility use at least one of these dose optimization te chniques: automated exposure control; mA and/or kV adjustment per patient size (includes targeted exa ms where dose is matched to clinical indication); or iterative reconstruction.
--- NOTE | 2020-01-27 11:41 | W.ED.GENAD ---
Discharge Plan Disposition Patient Disposition: HOME Condition: Stable Discharge Details Clinical Impression: Colitis, Chronic shortness of breath Primary Care Provider: Marino Swartz ED Provider: Filemon Ortiz Home Meds and New Rx's Prescriptions: Continued Eliquis 5 mg tablet 5 mg PO BID Qty: 180 RF: 3 multivitamin [Once Daily] 1 EACH tablet 1 ea PO DAILY RF: 0 cyanocobalamin (vitamin B-12) [Vitamin B-12] 1,000 MCG tablet 1,000 mcg PO DAILY RF: 0 omega-3 fatty acids-fish oil 1 EACH capsule 2 ea PO DAILY RF: 0 calcium carbonate-vitamin D3 [Caltrate with Vitamin D3] 1 EACH tablet 1 ea PO DAILY RF: 0 omeprazole 20 mg capsule,delayed release(DR/EC) 20 mg PO DAILY Qty: 90 RF: 3 cholecalciferol (vitamin D3) [Vitamin D3] 2,000 UNIT capsule 4,000 units PO DAILY RF: 0 ciprofloxacin HCl 500 mg tablet 500 mg PO BID Qty: 12 RF: 0 metronidazole [Flagyl] 500 mg tablet 500 mg PO TID Qty: 18 RF: 0 Discharge Instructions Instructions: Dyspnea (ED), Colitis (ED) Additional Instructions: Please drink plenty of fluids to stay hydrated. Take antibiotic as prescribed. Please contact your primary care physician to arrange follow-up. Follow-up with pulmonology is recommended given chronic shortness of breath and hypoxia (low oxygen level) noted. Return to the ER for any worsening or new concerning symptoms. Referrals: Chela Anne MD [ NON-[facility] STAFF PHYSICIAN] - Marino Swartz [Primary Care Provider] - Discharge Data Discharge Date/Time-TO BE ENTERED AT DEPARTURE: 01/27/20 14:24 Medical Decision Making 1142??69-year-old female with prior history of DVT, now on Eliquis, recently here 3 days ago for a few days of abdominal pain and diarrhea, diagnosed with colitis based on CT findings, started on ciprofloxacin and Flagyl and has been taking as prescribed, returns now with persistent diarrhea, generalized weakness and also shortness of breath. Patient notes shortness of breath is chronic for 2 years. Patient is saturating in the upper 80s to low 90s. She does have a prior history of DVT. I will obtain CT of the chest to assess for pulmonary embolism. Patient notes abdominal pain has improved. Abdominal exam is relatively benign. She does have some mild tenderness left upper quadrant with no peritoneal findings. Concern for hypovolemia. I will give IV fluid bolus. Patient does have some nausea. I will provide antiemetic. Screening ECG was reviewed and interpreted by me: Please see report, no STEMI, sinus rhythm 69 bpm with QTC of 411. 1405??CTA of the chest was interpreted by radiology: FINDINGS: Pulmonary Arteries: No evidence of filling defect to suggest pulmonary emboli. Tracheobronchial tree: Patent where visualized. Mediastinum and Maddison: No dominant adenopathy or fluid collection. Pulmonary parenchyma: No consolidation or dominant measurable mass. No architectural distortion. Pleura: No effusion or pneumothorax. Heart: The heart is not dilated. No coronary artery calcifications are seen. No significant pericardial effusion. Aorta: Thoracic aorta non-dilated. Atherosclerosis. Upper abdomen: Unremarkable. Bones: Degenerative changes. Soft tissues: Unremarkable. IMPRESSION: No evidence of pulmonary embolism, thoracic aortic dissection or aneurysm. Repeat pulse ox checked and patient is saturating in the low 90s. She has no respiratory distress. Patient feels much better after IV fluid. Plan for discharge with outpatient follow-up. I will have her follow-up with pulmonology given chronic shortness of breath and hypoxia. Disposition decision was made weighing the risks and benefits of hospitalization versus outpatient treatment, the risk for further decompensation, and the patient's wishes. The patient was stable and requested discharge. Prior to discharge, my usual and customary return precautions were reviewed with the patient - this included follow-up instructions and reason to return to the emergency department if condition worsens, does not improve as expected, or other new concerns arise. HPI General Mode of arrival: ambulatory. Date/Time Provider Initiated Documentation: 01/27/20 10:31. Limitations to Documentation: no limitations. Information obtained by: patient. HPI Narrative: 69-year-old female with prior history of DVT, now on Eliquis, recently here 3 days ago for a few days of abdominal pain and diarrhea, diagnosed with colitis based on CT findings, started on ciprofloxacin and Flagyl and has been taking as prescribed, returns now with chief complaint of generalized weakness, persistent diarrhea and also shortness of breath. Patient notes shortness of breath is chronic for 2 years. Patient notes generalized weakness is moderate to severe. Generalized. No modifiers. Related Data Home Medications Medication Instructions Recorded Confirmed calcium carbonate-vitamin D3 1 ea PO DAILY 11/23/12 01/27/20 [Caltrate with Vitamin D3] cyanocobalamin (vitamin B-12) 1,000 mcg PO DAILY 11/23/12 01/27/20 [Vitamin B-12] multivitamin [Once Daily] 1 ea PO DAILY 11/23/12 01/27/20 omega-3 fatty acids-fish oil 2 ea PO DAILY 11/23/12 01/27/20 cholecalciferol (vitamin D3) 4,000 units PO DAILY 02/04/13 01/27/20 [Vitamin D3] omeprazole 20 mg capsule,delayed 20 mg PO DAILY #90 tab-cap 06/15/19 01/27/20 release apixaban 5 mg tablet 5 mg PO BID #180 tab 12/11/19 01/27/20 ciprofloxacin HCl 500 mg PO BID #12 tab 01/24/20 01/27/20 metronidazole [Flagyl] 500 mg PO TID #18 tab 01/24/20 01/27/20 Previous Rx's Medication Instructions Recorded omeprazole 20 mg capsule,delayed 20 mg PO DAILY #90 tab-cap 06/15/19 release apixaban 5 mg tablet 5 mg PO BID #180 tab 12/11/19 ciprofloxacin HCl 500 mg PO BID #12 tab 01/24/20 metronidazole [Flagyl] 500 mg PO TID #18 tab 01/24/20 Allergies Allergy/AdvReac Type Severity Reaction Status Date / Time codeine Allergy Severe Anaphylaxsi Verified 01/27/20 10:37 s gabapentin Allergy Severe Decreased Verified 01/27/20 10:37 level of consciousness baclofen AdvReac Severe SEVERE Verified 01/27/20 10:37 MUSCLE WEAKNESS prednisone AdvReac Severe DIARRHEA Verified 01/27/20 10:37 lamotrigine [From Lamictal] AdvReac Intermediate GI Upset, Verified 01/27/20 10:37 Diarrhea General Stated Complaint: GenMedical VENUS: 3 Review of Systems All systems reviewed & are unremarkable except as noted in HPI and below Constitutional Constitutional: Denies fever(s) and Reports weakness Cardiovascular Cardiovascular: Reports dyspnea (chronic) Respiratory Respiratory: Denies cough and Reports dyspnea (chronic) Gastrointestinal Gastrointestinal: Reports diarrhea and Reports nausea Neurologic Neurologic: Reports weakness [facility] Medical History Cataract Dizziness Fatigue GERD (gastroesophageal reflux disease) Granuloma annulare Myotonic muscular dystrophy SHANNAN (obstructive sleep apnea) Tinnitus Surgical History Cholecystectomy Colonoscopy - MAC (01/22/16) 01/14/11; DR. FAUSTIN Extraction of cataract (02/01/13) 02/01/13; RIGHT 01/27/15; LEFT Tonsillectomy Vaginal hysterectomy partial colectomy due to endometriosis Family History Mother , 85 Essential hypertension Heart disease Hyperlipidemia Father , 71 Neoplasm LUNG Myotonic muscular dystrophy Brother Essential hypertension Hyperlipidemia Diverticulosis Grandfather Heart disease Myocardial infarction Grandmother Heart disease Grandmother Myotonic muscular dystrophy STRONG PATERNAL HISTORY Myotonic muscular dystrophy UNCLES, AUNTS, BROTHERS AND COUSINS Brother No problems noted. Brother High cholesterol Social History Smoking/Tobacco Use Status: Former Tobacco Use Quit Date: 03/01/07 Alcohol Intake: current Alcohol Intake frequency: holidays/special occasions only Alcohol type: beer Drug use: Never Substance use type: does not use Caregiver/Support person: No Housing: house Communication Needs: None Do you need help understanding health information?: Rarely Pets and animals: Yes Pets and animals: cat(s) and dog(s) Do you think of yourself as: lesbian/palacios/homosexual What is your relationship status?: never How often do you talk on the phone with friends or family?: three or more times per week Do you belong to any clubs or organized social groups?: yes Panel score (0-1 are the most socially isolated patients): 2 What type of physical activity do you participate in: other Details: aquatic therapy Duration: 45-60 minutes/day Frequency: 1-2 times per week Veda/Tenriism: Congregation Special veda needs: No Seatbelt use: always Drive intox or ride w/intox emergency vehicle driver: No Do you feel safe at home: Yes Do you feel safe in your relationship?: Yes Exam Const General: cooperative and no acute distress HENMT Mouth: moist mucous membranes Eyes Conjunctivae: normal conjunctivae Sclera: normal sclerae Neck Neck: trachea midline and supple Resp Auscultation: clear to auscultation bilaterally, no rales, no rhonchi and no wheezes Cardio Jugular venous pressure: no JVD Rate: regular rate and not tachycardic Rhythm: regular rhythm GI Palpation: soft, not firm, no guarding, no masses, not rigid and tender in the LUQ; with no rebound tenderness Skin General skin exam: no rashes or lesions noted Neuro General: patient alert, patient awake, patient oriented x3 and tone normal Extrem General: no edema Psych Appearance: grossly normal Mental Status: mental status grossly normal Course Vital Signs Vital signs: Vital Signs Temperature 36.4 C L 01/27/20 10:30 Pulse 80 01/27/20 10:30 Respiratory Rate 18 01/27/20 10:30 Blood Pressure 136/85 01/27/20 10:30 Pulse Oximetry 92 01/27/20 10:30 Temperature 36.4 C L 01/27/20 10:30 Temperature Source Skin 01/27/20 10:30 Pulse 80 01/27/20 10:30 Respiratory Rate 18 01/27/20 10:30 Respiratory Effort 01/27/20 10:36 Blood Pressure 136/85 01/27/20 10:30 Pulse Oximetry 92 01/27/20 10:30 Oxygen Delivery Method Room Air 01/27/20 10:30 Oxygen Flow Rate 0 01/27/20 10:30 Pain Level 2 01/27/20 10:30 Comment 01/27/20 10:30 Lab/Test Results Lab/Test Results: Laboratory Tests Range/Units 01/27/20 01/27/20 10:47 10:47 WBC (4.4-10.8) 10^3/uL 3.91 L RBC (3.93-5.22) 10^6/uL 4.31 Hgb (11.2-15.7) g/dL 13.8 Hct (36.0-46.0) % 43.1 MCV (80-95) fL 100.0 H MCH (27.0-33.0) pg 32.0 MCHC (32.0-36.0) % 32.0 RDW (11.7-14.6) % 12.7 Plt Count (130-400) 10^3/uL 170 MPV (8.0-11.0) fL 10.6 Immature Gran % 0.0 Neutrophils % 36.4 Lymphocytes % 45.3 Monocytes % 13.0 Eosinophils % 4.3 Basophils % 1.0 Nucleated RBC % % 0 Absolute Neutrophils (1.2-6.7) 10^3/uL 1.42 Absolute Lymphocytes (1.2-3.4) 10^3/uL 1.77 Absolute Monocytes (0.1-0.8) 10^3/uL 0.51 Absolute Eosinophils (0.0-0.7) 10^3/uL 0.17 Absolute Basophils (0.0-0.2) 10^3/uL 0.04 Sodium (136-145) mmol/L 142 Potassium (3.5-5.1) mmol/L 3.4 L Chloride (98-107) mmol/L 105 Carbon Dioxide (21.0-32.0) mmol/L 29.4 Anion Gap (3-11) mmol/L 7.6 BUN (7-18) mg/dL 7 Creatinine (0.55-1.02) mg/dL 0.81 Estimated GFR/1.73 m2 (mL/min/1.73m2) >= 60.00 Glucose (74-106) mg/dL 112 H Calcium (8.5-10.1) mg/dL 8.8 Magnesium (1.8-2.4) mg/dL 2.1 Total Bilirubin (0.2-1.0) mg/dL 0.3 AST (15-37) U/L 40 H ALT (14-59) U/L 36 Alkaline Phosphatase (46-116) U/L 128 H Total Protein (6.4-8.2) g/dL 6.5 Albumin (3.4-5.0) g/dL 3.2 L
[2020-01-27 11:44] LABS: Lipase 63 U/L (73-393)
[2020-01-27 12:02] LABS: Troponin I < 0.05 ng/mL (<0.06)
[2020-01-27] MEDS: Potassium Chloride 20 MEQ TABCR PO (12:04)
[2020-01-27] MEDS: POTASSIUM CHLORIDE 10 MEQ/100 ML BAG 100 MEQ IVPB (12:35)
[2020-01-27] MEDS: Omnipaque 350 MG/ML 100 ML BTL IV (12:47)
[2020-01-27 14:26] LABS: Troponin I < 0.05 ng/mL (<0.06)
--- NOTE | 2020-01-27 15:01 | NUR.NOTE ---
Nursing Note: Referral to PCP for follow up and to get follow up for the patient with Pulmonology, Carlota CASTILLO
[2020-01-27 21:02] LABS: COVID-19 RT-PCR UVMMC Result Negative (Negative)
--- NOTE | 2020-01-28 08:13 | NUR.NOTE ---
Patient called with Negative Covid result. Verbalizes understanding.Nursing Note:
== END 2020-01-27 14:24 | disposition home or self-care (01) ==
PROVIDERS: Emergency Provider Student in an Organized Health Care Education/Training Program; PCP Family Medicine
DX: R09.02 Hypoxemia (principal); R06.02 Shortness of breath; K52.9 Noninfective gastroenteritis and colitis, unspecified; R53.1 Weakness; G71.11 Myotonic muscular dystrophy; Z86.718 Personal history of other venous thrombosis and embolism; Z03.818 Encounter for observation for suspected exposure to other biological agents ruled out
CPT/HCPCS: 36415; 71275; 80053; 83690; 93005; 96361; 96365; 96375; 99285; U0003; 83735; 84484; 85025; 93010; J2765; J3480; J3490

== ENCOUNTER → 2020-03-09 09:45 | Outpatient (BNVA) | payer MEDICARE, SELFPAY | PROVIDERS: PCP Family Medicine; Referring Provider Family Medicine; Visit Provider Surgery | DX: R13.10 Dysphagia, unspecified (principal); K52.9 Noninfective gastroenteritis and colitis, unspecified; G71.11 Myotonic muscular dystrophy | CPT/HCPCS: 99214 ==

== ENCOUNTER 2020-03-20 01:47 | Outpatient (CLI) | payer MEDICARE, SELFPAY ==
[2020-03-21 16:43] LABS: COVID-19 RT-PCR Result NEGATIVE (Negative)
== END 2020-03-20 02:07 ==
PROVIDERS: PCP Family Medicine; Visit Provider Surgery
DX: Z11.59 Encounter for screening for other viral diseases (principal); Z01.818 Encounter for other preprocedural examination
CPT/HCPCS: U0003

== ENCOUNTER 2020-03-24 06:07 | Day surgery (SDC) | payer MEDICARE, SELFPAY ==
[2020-03-24 06:15] VITALS: BP 119/85; PULSE 85; RESP 18; TEMP 36.5; O2SAT 88
[2020-03-24] MEDS: Lactated Ringers 1,000 ML 80 ML IV (06:54)
--- NOTE | 2020-03-24 07:19 | W.PM.DSUDISC ---
Discharge Plan Disposition Patient Disposition: HOME Condition: Good Discharge Details Reason For Visit: EGD, Colonoscopy Attending Provider: Patience Colin Primary Care Provider: Marino Swartz Home Meds and New Rx's Prescriptions: Continued Eliquis 5 mg tablet 5 mg PO BID Qty: 180 RF: 3 multivitamin [Once Daily] 1 EACH tablet 1 ea PO DAILY RF: 0 cyanocobalamin (vitamin B-12) [Vitamin B-12] 1,000 MCG tablet 1,000 mcg PO DAILY RF: 0 omega-3 fatty acids-fish oil 1 EACH capsule 2 ea PO DAILY RF: 0 calcium carbonate-vitamin D3 [Caltrate with Vitamin D3] 1 EACH tablet 1 ea PO DAILY RF: 0 omeprazole 20 mg capsule,delayed release(DR/EC) 20 mg PO DAILY Qty: 90 RF: 3 cholecalciferol (vitamin D3) [Vitamin D3] 2,000 UNIT capsule 4,000 units PO DAILY RF: 0 metronidazole [Flagyl] 500 mg tablet 500 mg PO TID Qty: 18 RF: 0 Discontinued bisacodyl [Dulcolax (bisacodyl)] 5 mg tablet,delayed release (DR/EC) 5 mg PO ONCE Qty: 4 RF: 0 polyethylene glycol 3350 17 gram/dose powder 17 g PO ONCE Qty: 238 RF: 0 Discharge Instructions Additional Instructions: Findings: Your EGD looked normal. The colonoscopy was normal. No inflammation was visualized today. Follow up: Plan for routine colon screening in 10 years. Please call if you develop: fevers >101.5 Nausea or Vomiting Abdominal pain that is not transient DAY SURGERY UNIT POST EGD/COLONOSCOPY INSTRUCTIONS 1. Because there will be medication in your system for the next 24 hours, you may feel a little sleepy. Your coordination will be affected. Therefore: a. Do not drive or operate dangerous equipment for 24 hours. b. Do not drink alcohol beverages for 24 hours (not even beer). c. Plan to go home and rest for the day. 2. Generally there are no restrictions on your activity after a day or so has gone by, but you may feel a bit fatigued for a few days. 3 After you arrive home you may have a light meal and return to a normal diet as you can tolerate it without feeling sick to your stomach. 4. After surgery, you may feel pain or discomfort. This should be only transient, but if it persists please contact your doctor. 5. If there are any questions regarding the findings of your procedure, please feel free to contact your doctor. 6. If you are unable to contact your doctor with a problem, contact the hospital at [phone]. 7. Continue all your regular medications unless directed otherwise. I understand the above instructions and have no questions. Signature of Patient or Responsible Adult Escort Date/Time Name of Responsible Adult Escort Signature of Nurse Date/Time Activity:: Activity as Tolerated Diet:: As Tolerated Discharge Orders Discharge Orders: Discharge Order (Routine); Ordered 03/24/20 Ordered By: Patience Colin DS: Diagnosis Discharge Diagnosis (1) Dysphagia: Status: Acute (2) Normal colonoscopy: Status: Acute
--- NOTE | 2020-03-24 07:21 | W.COLOREPORT ---
Date of service: 03/24/20 Time of Service: 08:21 Colonoscopy Report Date of procedure: 03/24/20 Pre-op diagnosis general: Dysphagia, rectal bleeding, abnormal CT Procedure: EGD Colonoscopy Surgeon: Patience Colin Anesthesia proc note operative: MAC Indications: This 69 year old woman presents for evaluation of dysphagia. She also presented with rectal bleeding and CT showed mild inflammation in her sigmoid region. Symptoms have resolved. She had a colon resection as a part of a hysterectomy for endometriosis. Her most recent colonoscopy in 2015 was normal, prior in 2010 showed polyps. Procedure Description: The patient was placed in the left lateral position and propofol titrated to sedation. The endoscope was advanced into the esophagus under direct visualization. The scope was passed through the stomach and into the duodenum. There was no duodenitis or ulceration noted. The stomach itself was normal including on retroflexed view of the fundus and lesser curvature. The GE junction was inspected and showed no significant stricture, inflammation, masses or Barretts. The scope was slowly withdrawn with no other esophageal lesions found. Digital rectal examination revealed no abnormalities. The scope was advanced to the cecum without difficulty. The ileocecal valve and appendiceal orifice were clearly identified. The prep was good. The scope was slowly withdrawn over the course of greater than 6 minutes with no abnormalities seen in the ascending, transverse, descending, sigmoid colon or rectum including on retroflexed view. I did not see evidence of the prior colon resection. The patient tolerated the procedure well and was stable to recovery. It is assumed her dysphagia is related to muscular dystrophy. If further evaluation is desired, she can consider evaluation with speech pathology. Plan for routine screening colonoscopy in 10 years or sooner if symptoms indicate.
[2020-03-24 08:44] VITALS: BP 105/71; PULSE 64; RESP 18; TEMP 36.3; O2SAT 92
== END 2020-03-24 09:15 | disposition home or self-care (01) ==
PROVIDERS: PCP Family Medicine; Visit Provider Surgery
PROC: (CPT 43235; principal; 2020-03-24 07:30)
DX: R13.10 Dysphagia, unspecified (principal); R93.3 Abnormal findings on diagnostic imaging of other parts of digestive tract; K62.5 Hemorrhage of anus and rectum; R10.13 Epigastric pain; G71.11 Myotonic muscular dystrophy; Z86.010 Personal history of colon polyps; Z90.49 Acquired absence of other specified parts of digestive tract
CPT/HCPCS: 43235; 45378; J2001

== ENCOUNTER 2020-04-28 01:57 | Outpatient (CLI) | payer MEDICARE, SELFPAY ==
[2020-04-29 20:08] LABS: COVID-19 RT-PCR UVMMC Result Negative (Negative)
== END 2020-04-28 02:17 ==
PROVIDERS: PCP Family Medicine; Visit Provider Nurse Practitioner
DX: Z11.52 Encounter for screening for COVID-19 (principal); Z01.818 Encounter for other preprocedural examination
CPT/HCPCS: U0003

== ENCOUNTER 2020-11-04 02:03 | Outpatient (CLI) | payer MEDICARE, SELFPAY ==
--- NOTE | 2020-11-04 09:15 | DI.MAMMO_ITS ---
Exam(s) MAMMO SCREENING EXAM: MAMMO SCREENING CLINICAL HISTORY: screening,z12.39. TECHNIQUE: Bilateral full field digital CC and MLO mammographic images were obtained with 3D tomosyn thesis and utilizing computer aided detection (CAD). COMPARISON: Prior mammograms dating back to 2011, the most recent being October 2019. FINDINGS: Fibroglandular tissue pattern is again noted be quite dense, this decreasing the sensitivity of the m ammogram for finding hidden underlying lesions. There are no new obvious spiculated masses nor malignant appearing microcalcification groups. There is no significant architectural distortion nor skin thickening-retraction. IMPRESSION: Dense blood fibroglandular tissue. No obvious radiographic evidence of malignancy nor significant ch brady compared to prior studies listed above. BI-RADS Category 1 - Negative Breast Density - Category C - Heterogeneously dense Breast density Category C or D implies that the patient has dense breast tissue. Dense breast tissue can make it harder to find cancer on a mammogram. Dense breast tissue is also associated with an incr eased risk of breast cancer. This information about the result of the mammogram report was provided to the patient to raise their awareness. Use this report when you speak with the patient about their risks for breast cancer, which includes their family history. At that time, you may recommend additional screening tests (Ultrasoun d or MRI) as these tests may add significant information. A negative radiographic report should not delay biopsy if a dominant or clinically suspicious mass is present. Up to ten percent of cancers are not identified on mammography. A negative report may reinforce clinical impression. Adenosis and dense breasts may obscure an underlying neoplasm. False positive reports average 6 to 10%. Patient will receive a letter notifying them of these results.
== END 2020-11-04 02:23 ==
PROVIDERS: PCP Family Medicine; Visit Provider Family Medicine
DX: Z12.31 Encounter for screening mammogram for malignant neoplasm of breast (principal)
CPT/HCPCS: 77063; 77067

== ENCOUNTER 2020-12-09 01:14 | Outpatient (CLI) | payer MEDICARE, SELFPAY ==
--- NOTE | 2020-12-09 08:15 | DI.RAD_ITS ---
Exam(s) XR LUMBAR SPINE COMPLETE EXAM: XR LUMBAR SPINE COMPLETE CLINICAL HISTORY: low back and left hip pain, M54.9. TECHNIQUE: 2D digital imaging was performed. COMPARISON: No exams were available for comparison FINDINGS: There is no evidence of fracture nor listhesis. No pars defects. There is mild disc space narrowing at L4-5 level. Anterior osseous lipping at L3-4 level and mild posterior osseous lipping at this le amena also noted. Degenerative changes noted in the facet joints of the lower 2 levels. Sacroiliac lucrecia ints appear unremarkable. No osseous lesions. No scoliosis. IMPRESSION: Subtle evidence of degenerative disc disease. Also facet arthropathy in both facet joints at the low er 2 levels. Sacroiliac joints appear unremarkable. DATA REPOSITORY: RADIATION DOSE DELIVERED:
--- NOTE | 2020-12-09 08:15 | DI.RAD_ITS ---
Exam(s) XR HIP LT COMPLETE AP PELVIS EXAM: XR HIP LT COMPLETE AP PELVIS CLINICAL HISTORY: left hip pain, M25.552. TECHNIQUE: 2D digital imaging was performed. COMPARISON: CR LUMBAR SPINE COMPLETE from 12/11/2017 FINDINGS: No evidence of pelvic nor hip fracture. No degenerative changes in the hips. Additional lateral vie w of the left hip reveals no significant findings. Bone density is normal. No osseous lesions. Sac roiliac joints appear age-appropriate. There are no osseous lesions. IMPRESSION: No significant radiographic findings. DATA REPOSITORY: RADIATION DOSE DELIVERED:
== END 2020-12-09 01:34 ==
PROVIDERS: PCP Family Medicine; Visit Provider Family Medicine
DX: M54.9 Dorsalgia, unspecified (principal); M25.552 Pain in left hip; M51.36 Other intervertebral disc degeneration, lumbar region; M47.816 Spondylosis without myelopathy or radiculopathy, lumbar region
CPT/HCPCS: 72110; 73502

== ENCOUNTER 2021-01-13 03:14 | Outpatient (CLI) | payer MEDICARE, SELFPAY ==
[2021-01-13 12:29] LABS: HCT 43.3 % (36.0-46.0); HGB 13.5 g/dL (11.2-15.7); MCH 31.8 pg (27.0-33.0); MCHC 31.2 % (32.0-36.0); MCV 102.1 fL (80-95); MPV 10.9 fL (8.0-11.0); Platelet Count 185 10^3/uL (130-400); RBC 4.24 10^6/uL (3.93-5.22); RDW 13.1 % (11.7-14.6); RDW-SD 49.7 fL; WBC 4.99 10^3/uL (4.4-10.8)
[2021-01-13 12:54] LABS: ALT 32 U/L (14-59); AST 21 U/L (15-37); Albumin 3.4 g/dL (3.4-5.0); Alkaline Phosphatase 153 U/L (46-116); Anion Gap 2.2 mmol/L (3-11); BUN 12 mg/dL (7-18); Bilirubin, Total 0.4 mg/dL (0.2-1.0); CO2 33.8 mmol/L (21.0-32.0); CREATININE 0.7 mg/dL (0.55-1.02); Calcium 9.3 mg/dL (8.5-10.1); Chloride 109 mmol/L (98-107); Glucose 90 mg/dL (74-106); Potassium 5.3 mmol/L (3.5-5.1); Sodium 145 mmol/L (136-145); Total Protein 6.4 g/dL (6.4-8.2)
== END 2021-01-13 03:15 | disposition home or self-care (01) ==
PROVIDERS: PCP Family Medicine; Visit Provider Family Medicine
DX: R10.9 Unspecified abdominal pain (principal)
CPT/HCPCS: 36415; 80053; 85027

== ENCOUNTER 2021-01-18 03:37 | Outpatient (CLI) | payer MEDICARE, SELFPAY ==
[2021-01-18 13:01] LABS: Anion Gap 3.8 mmol/L (3-11); CO2 33.2 mmol/L (21.0-32.0); Chloride 106 mmol/L (98-107); Potassium 4.8 mmol/L (3.5-5.1); Sodium 143 mmol/L (136-145)
[2021-01-19 14:11] LABS: Alkaline Phosphatase 145 U/L (46-116)
== END 2021-01-18 03:38 | disposition home or self-care (01) ==
PROVIDERS: PCP Family Medicine; Visit Provider Family Medicine
DX: E87.5 Hyperkalemia (principal); R74.8 Abnormal levels of other serum enzymes
CPT/HCPCS: 36415; 80051; 84075

== ENCOUNTER 2021-02-24 02:20 | Outpatient (CLI) | payer MEDICARE, SELFPAY ==
[2021-02-24 17:04] LABS: Cholesterol 251 mg/dL (<200); Triglyceride 155 mg/dL (<150)
[2021-02-24 17:05] LABS: Alkaline Phosphatase 146 U/L (46-116); Calculated LDL 156 mg/dL (<100); HDL Cholesterol 64 mg/dL (40-60)
== END 2021-02-24 02:21 | disposition home or self-care (01) ==
PROVIDERS: PCP Family Medicine; Visit Provider Family Medicine
DX: E78.5 Hyperlipidemia, unspecified (principal); R74.8 Abnormal levels of other serum enzymes
CPT/HCPCS: 36415; 80061; 84075

== ENCOUNTER 2021-03-10 01:53 | Outpatient (CLI) | payer MEDICARE, SELFPAY ==
--- NOTE | 2021-03-10 14:30 | DI.MRI_ITS ---
Exam(s) MR LOWER JOINT LT WO EXAM: MR LOWER JOINT LT WO CLINICAL HISTORY: OSTEOARTHRITIS OF LT HIP M16.12. TECHNIQUE: Multiplanar multisequence MRI was performed. COMPARISON: CR XR HIP LT COMPLETE AP PELVIS from 12/09/2020 CR XR HIP LT COMPLETE AP PELVIS from 12/09/2020 FINDINGS: MR examination of left hip was performed usual protocol. Bones: There are areas of abnormal signal in the posterior aspect of the femoral head on the left and there are associated areas of abnormal signal in the posterior acetabulum. There are small subchond ral cysts of the posterior aspect of the femoral head. There appear to be mild marginal osteophytes of the acetabulum and to a lesser degree the femoral head. These findings are consistent with degene rative change. There is a small hip joint effusion on left. Labrum: There is an apparent left superior and anterior labral tear which is nondisplaced. Ligaments: No gross ligamentous disruption is seen. Tendons: No significant tendinous tear is identi fied in the region of the hip. Pelvic soft tissues: No pelvic mass. No adenopathy. Right hip: Mild degenerative marginal osteophyte formation.. No other significant findings. IMPRESSION: The appearance is suggestive of an anterior superior labral tear on this noncontrast study. There are moderate degenerative changes of the left hip with marginal osteophyte formation, marrow ed gavi of posterior femoral head and adjacent acetabulum, and subchondral cyst formation of the femoral head. DATA REPOSITORY:
== END 2021-03-10 02:13 ==
PROVIDERS: PCP Family Medicine; Visit Provider Nurse Practitioner Acute Care
DX: M16.12 Unilateral primary osteoarthritis, left hip (principal); M25.552 Pain in left hip; M25.752 Osteophyte, left hip
CPT/HCPCS: 73721

== ENCOUNTER 2021-08-26 01:53 | Outpatient (CLI) | payer MEDICARE, SELFPAY ==
[2021-08-26 12:58] LABS: Alkaline Phosphatase 146 U/L (46-116)
== END 2021-08-26 01:54 | disposition home or self-care (01) ==
LOC: LOS 01:53
PROVIDERS: PCP Family Medicine; Visit Provider Family Medicine
DX: R74.8 Abnormal levels of other serum enzymes (principal)
CPT/HCPCS: 36415; 84075

== ENCOUNTER 2021-09-07 03:46 | Outpatient (CLI) | payer MEDICARE, SELFPAY ==
[2021-09-07] MEDS: Inhaler, Assist Device 1 EACH MC (14:04)
[2021-09-07] MEDS: Albuterol HFA 18 GM 200 PUFF INH IH (14:04)
--- NOTE | 2021-09-21 10:49 | W.PFT ---
Date of service: 09/07/21 Time of Service: 12:45 Pulmonary Function Test Result Requesting Provider Jaci Avila Indications: Dyspnea on exertion Interpretation Spirometry: There is no airflow limitation. There is no significant bronchodilator response. The MIP is normal with a decreased MEP. Lung Volumes: Normal lung volumes Diffusion Capacity: Normal diffusion Airway Pressure: Normal airways resistance Impression Likely normal pulmonary function testing. The relevance of a solitary decreased MEP is unclear. Clinical Correlation therefore is recommended.
== END 2021-09-07 03:47 | disposition home or self-care (01) ==
LOC: RT 03:46
PROVIDERS: PCP Family Medicine; Visit Provider Nurse Practitioner
DX: R06.02 Shortness of breath (principal); R06.09 Other forms of dyspnea
CPT/HCPCS: 94060; 94726; 94729

== ENCOUNTER → 2021-11-15 01:08 | Outpatient (CLI) | payer MEDICARE, SELFPAY ==
--- NOTE | 2021-11-15 07:30 | DI.MAMMO_ITS ---
Exam(s) MAMMO SCREENING EXAM: MAMMO SCREENING CLINICAL HISTORY: screening,z12.39 TECHNIQUE: Mammograms were interpreted according to the usual protocol including computer analysis w [facility] CAD system, tomosynthesis and C-view imaging. COMPARISON: FINDINGS: Breasts are heterogeneously dense. No dominant mass or clumped microcalcification is identified in e ither breast. The current examination is compared with previous examinations including October 2020 and there has been no gross interval change in appearance in comparison with the prior studies. IMPRESSION: No specific evidence of malignancy at this time. Routine screening examinations are suggested at yea rly intervals in this age group according to the ACS ACR guidelines. BI-RADS Category 1 - Negative Breast Density - Category C - Heterogeneously dense
== END ==
PROVIDERS: PCP Family Medicine; Visit Provider Family Medicine
DX: Z12.31 Encounter for screening mammogram for malignant neoplasm of breast (principal)
CPT/HCPCS: 77063; 77067

== ENCOUNTER 2022-01-21 01:21 | Outpatient (CLI) | payer MEDICARE, SELFPAY ==
[2022-01-21 12:19] LABS: HCT 43.9 % (36.0-46.0); HGB 13.8 g/dL (11.2-15.7); MCH 32.8 pg (27.0-33.0); MCHC 31.4 % (32.0-36.0); MCV 104 fL (80-95); MPV 11.2 fL (8.0-11.0); Platelet Count 175 10^3/uL (130-400); RBC 4.21 10^6/uL (3.93-5.22); RDW 12.9 % (11.7-14.6); RDW-SD 49.4 fL; WBC 5.11 10^3/uL (4.4-10.8)
[2022-01-21 12:30] LABS: Alkaline Phosphatase 122 U/L (46-116); Calculated LDL 150 mg/dL (<100); Cholesterol 236 mg/dL (<200); HDL Cholesterol 68 mg/dL (40-60); Triglyceride 93 mg/dL (<150)
== END 2022-01-21 01:22 | disposition home or self-care (01) ==
LOC: LOS 01:22
PROVIDERS: PCP Family Medicine; Visit Provider Family Medicine
DX: E78.5 Hyperlipidemia, unspecified (principal); R53.83 Other fatigue; R74.8 Abnormal levels of other serum enzymes
CPT/HCPCS: 36415; 80061; 85027; 84075

== ENCOUNTER 2022-02-23 08:43 | Outpatient (CLI) | payer MEDICARE, SELFPAY ==
--- NOTE | 2022-02-23 08:30 | RT.EKG_ITS ---
APPROVED REPORT Exam: Resting ECG Reason for Exam: Pre Op for [facility] Patient Location: O HR:75 bpm ECG Measurements Heart Rate 75 AXIS NM 211 P 78 QRSd 66 QRS 65 QT 365 T 67 QTc 408 Conclusion Sinus rhythm...normal P axis, V-rate 50- 99 Normal Electrocardiogram
== END 2022-02-23 08:44 | disposition home or self-care (01) ==
LOC: DI.CM 08:44
PROVIDERS: PCP Family Medicine; Visit Provider Family Medicine
DX: Z01.818 Encounter for other preprocedural examination (principal)
CPT/HCPCS: 93010

== ENCOUNTER 2022-04-28 04:11 | Outpatient (CLI) | payer MEDICARE, SELFPAY ==
[2022-04-28 13:01] LABS: AST 25 U/L (15-37); Alkaline Phosphatase 159 U/L (46-116); Calculated LDL 115 mg/dL (<100); Cholesterol 214 mg/dL (<200); HDL Cholesterol 68 mg/dL (40-60); Triglyceride 157 mg/dL (<150)
== END 2022-04-28 04:12 | disposition home or self-care (01) ==
LOC: LOS 04:11
PROVIDERS: PCP Family Medicine; Visit Provider Family Medicine
DX: E78.5 Hyperlipidemia, unspecified (principal); R74.8 Abnormal levels of other serum enzymes
CPT/HCPCS: 36415; 80061; 84075; 84450

== ENCOUNTER → 2022-08-24 12:45 | Outpatient (BNVA) | payer MEDICARE, SELFPAY | PROVIDERS: PCP Family Medicine; Referring Provider Student in an Organized Health Care Education/Training Program; Visit Provider Psychiatry & Neurology Neurology | DX: G71.11 Myotonic muscular dystrophy (principal) | CPT/HCPCS: 99214 ==

== ENCOUNTER 2022-08-30 03:03 | Outpatient (CLI) | payer MEDICARE, SELFPAY ==
[2022-08-30 13:01] LABS: Creatine Kinase 61 U/L (26-192)
== END 2022-08-30 03:04 | disposition home or self-care (01) ==
LOC: LOS 03:03
PROVIDERS: PCP Family Medicine; Visit Provider Family Medicine
DX: G72.89 Other specified myopathies (principal)
CPT/HCPCS: 36415; 82550

== ENCOUNTER → 2022-12-06 02:25 | Outpatient (CLI) | payer MEDICARE, SELFPAY ==
--- NOTE | 2022-12-06 15:43 | DI.MAMMO_ITS ---
Exam(s) MAMMO SCREENING EXAM: MAMMO SCREENING CLINICAL HISTORY: screening,z12.39 TECHNIQUE: Bilateral full field digital CC and MLO mammographic images were obtained with 3D tomosyn thesis and utilizing computer aided detection (CAD). COMPARISON: Available for comparison. FINDINGS: Masses/Architectural Distortion: None seen. Microcalcifications: No suspicious pleomorphic-type are seen. Skin Thickening/Nipple Retraction: None. IMPRESSION: 1. No significant interval change with no specific features of malignancy noted. 2. Unless there is more urgent need, screening mammography is recommended, as per [employer] guidelines. BI-RADS Category 1 - Negative Breast Density - Category C - Heterogeneously dense Breast density category C or D implies that the patient has dense breast tissue. Dense breast tissue is very common and is not abnormal but dense breast tissue can make it harder to find cancer on a ma mmogram. Also, dense breast tissue may increase their breast cancer risk. This information about the result of the mammogram report was provided to the patient to raise their awareness. Use this report when you speak with the patient about their risks for breast cancer, which includes their family hist ory. At that time, you may recommend for more screening tests (Ultrasound or MRI) as they might be us eful based on their risk. A negative radiographic report should not delay biopsy if a dominant or clinically suspicious mass is present. Up to ten percent of cancers are not identified on mammography. A negative report may reinforce clinical impression. Adenosis and dense breasts may obscure an underlying neoplasm. False positive reports average 6 to 10%. Patient will receive a letter notifying them of these results.
== END ==
PROVIDERS: PCP Family Medicine; Visit Provider Family Medicine
DX: Z12.31 Encounter for screening mammogram for malignant neoplasm of breast (principal)
CPT/HCPCS: 77063; 77067

== ENCOUNTER → 2023-02-10 00:24 | Outpatient (CLI) | payer MEDICARE, SELFPAY ==
--- NOTE | 2023-02-10 09:03 | DI.CT_ITS ---
Exam(s) CT CHEST WO EXAM: CT CHEST WO CLINICAL HISTORY: screening for lung cancer,H/O SMOKER,Z87.891 TECHNIQUE: Imaging Protocol: Axial computed tomography images with coronal and sagittal reformatted images were created and reviewed. Low dose screening protocol. COMPARISON: CT CHEST - LUNG CANCER SCREENING from 08/05/[address] CHEST PE CTA from 01/27/2020 FINDINGS: Tracheobronchial tree: No bronchiectasis or mucus plugging.. Mediastinum and Maddison: No dominant adenopathy or fluid collection. Pulmonary parenchyma: No consolidation or dominant measurable mass. Minimal emphysematous changes. Lung Nodules: None. Pleura: No effusion. No pneumothorax. Heart: The heart is not dilated. No coronary artery calcifications are seen. Aorta: Thoracic aorta non-dilated. Upper abdomen: Post cholecystectomy. Bones: Unremarkable for age. Soft Tissues: Unremarkable. IMPRESSION: No suspicious pulmonary nodules. Lung RADS Cat 1 - Negative: No nodules and definitely benign nodules Lung-RADS 1.0 CATEGORIES: Category 0 - Prior chest CT exam(s) being located for comparison. Category 1 - Annual screening in 12 months. No nodules or definitely benign nodules. Category 2 - Annual screening in 12 months. Benign appearance. Nodules with low likelihood of becomin g active cancer. Category 3 - 6-month follow-up. Probably benign. Short-term follow-up suggested. Nodules with low lik elihood of becoming active cancer. Category 4A - 3-month follow-up and CT/PET if >8 mm in size. Suspicious finding. Findings which requi re additional testing. Category 4B - Findings which require additional testing and tissue sampling. Category 4X - Category 3 or 4 nodules with additional features or imaging findings that increases the suspicion of malignancy. Modifier S- Potentially clinically significant findings (non lung cancer) RADIATION DOSE DELIVERED: Total DLP Total DLP Total DLP DATA REPOSITORY: All CT scans at this facility are submitted to the National Radiology Data Registry (NRDR) Dose Index Registry (DIR) with the [employer] (ACR). RADIATION OPTIMIZATION: All CT scans at this facility use at least one of these dose optimization te chniques: automated exposure control; mA and/or kV adjustment per patient size (includes targeted exa ms where dose is matched to clinical indication); or iterative reconstruction.
== END ==
PROVIDERS: PCP Family Medicine; Visit Provider Nurse Practitioner Family
DX: E11.9 Type 2 diabetes mellitus without complications (principal); Z87.891 Personal history of nicotine dependence; Z12.2 Encounter for screening for malignant neoplasm of respiratory organs
CPT/HCPCS: 71250

== ENCOUNTER 2023-02-20 01:00 | Outpatient (CLI) | payer MEDICARE, SELFPAY ==
[2023-02-20 12:47] LABS: Anion Gap 7.3 mmol/L (3-11); BUN 10 mg/dL (7-18); CO2 29.7 mmol/L (21.0-32.0); CREATININE 0.7 mg/dL (0.55-1.02); Calcium 9.3 mg/dL (8.5-10.1); Calculated LDL 76 mg/dL (<100); Chloride 104 mmol/L (98-107); Cholesterol 172 mg/dL (<200); Estimated GFR 92.41 (mL/min/1.73m2); Glucose 99 mg/dL (74-106); HDL Cholesterol 71 mg/dL (40-60); Sodium 141 mmol/L (136-145); Triglyceride 126 mg/dL (<150)
== END 2023-02-20 01:01 | disposition home or self-care (01) ==
PROVIDERS: PCP Family Medicine; Visit Provider Nurse Practitioner Family
DX: E78.5 Hyperlipidemia, unspecified (principal); I82.401 Acute embolism and thrombosis of unspecified deep veins of right lower extremity; K21.9 Gastro-esophageal reflux disease without esophagitis; Z00.00 Encounter for general adult medical examination without abnormal findings
CPT/HCPCS: 36415; 80048; 80061

== ENCOUNTER 2023-04-28 12:18 | Outpatient (CLI) | payer MEDICARE, SELFPAY | END 2023-04-28 12:19 | disposition home or self-care (01) | PROVIDERS: PCP Family Medicine; Visit Provider Family Medicine | DX: R55 Syncope and collapse (principal) | CPT/HCPCS: 93270 ==

== ENCOUNTER 2023-06-02 12:40 | Outpatient (CLI) | payer MEDICARE, SELFPAY ==
--- NOTE | 2023-06-02 12:43 | W.CARDEVENT ---
Date of service: 06/02/23 Time of Service: 12:43 Cardiac Event Recorder Referring Provider:: Marino Swartz Indications:: Syncope Cardiac Event Note: This is a cardiac event monitor ordered for syncope. Patient was monitored for 25 days and 14 hours Rhythm throughout was sinus with an average heart rate of 80. Maximum was 134, there was no bradycardia There were no ventricular dysrhythmias There was no atrial fibrillation, no high-grade AV block, no pauses greater than 3 seconds Patient symptoms appear to correspond to sinus rhythm in the 90s
== END 2023-06-02 12:41 | disposition home or self-care (01) ==
LOC: CARDOPNVT 12:40
PROVIDERS: PCP Family Medicine; Visit Provider Internal Medicine Cardiovascular Disease
DX: R55 Syncope and collapse (principal)
CPT/HCPCS: 93272

== ENCOUNTER 2023-09-06 09:03 | Outpatient (CLI) | payer MEDICARE, SELFPAY ==
[2023-09-06 13:17] LABS: Absolute Basophil Count 0.04 10^3/uL (0.0-0.2); Absolute Eosinophil Count 0.09 10^3/uL (0.0-0.7); Absolute Lymphocyte Count 2.19 10^3/uL (1.2-3.4); Absolute Monocyte Count 0.49 10^3/uL (0.1-0.8); Absolute Neutrophil Count 1.65 10^3/uL (1.2-6.7); Basophils % 0.9 %; HCT 46.3 % (36.0-46.0); HGB 14.5 g/dL (11.2-15.7); Lymphocytes % 49.1 %; MCH 32.8 pg (27.0-33.0); MCHC 31.3 % (32.0-36.0); MCV 105 fL (80-95); MPV 11.3 fL (8.0-11.0); Platelet Count 179 10^3/uL (130-400); RBC 4.42 10^6/uL (3.93-5.22); RDW 13.3 % (11.7-14.6); RDW-SD 51.7 fL; WBC 4.46 10^3/uL (4.4-10.8)
[2023-09-06 13:59] LABS: ALT 30 U/L (14-59); AST 25 U/L (15-37); Albumin 3.7 g/dL (3.4-5.0); Alkaline Phosphatase 140 U/L (46-116); Anion Gap 6.2 mmol/L (3-11); BUN 12 mg/dL (7-18); Bilirubin, Total 0.4 mg/dL (0.2-1.0); CO2 30.8 mmol/L (21.0-32.0); CREATININE 0.8 mg/dL (0.55-1.02); Calcium 9.5 mg/dL (8.5-10.1); Chloride 107 mmol/L (98-107); Estimated GFR 78.72 (mL/min/1.73m2); Glucose 82 mg/dL (74-106); Potassium 3.6 mmol/L (3.5-5.1); Sodium 144 mmol/L (136-145); Total Protein 6.9 g/dL (6.4-8.2)
== END 2023-09-06 09:04 | disposition home or self-care (01) ==
LOC: LOS 09:04
PROVIDERS: PCP Family Medicine; Visit Provider Family Medicine
DX: R10.9 Unspecified abdominal pain (principal); E03.9 Hypothyroidism, unspecified; D64.9 Anemia, unspecified
CPT/HCPCS: 36415; 80053; 84443; 85025

== ENCOUNTER 2023-11-07 12:52 | Emergency (ER) | payer MEDICARE, SELFPAY ==
[2023-11-07] VITALS (24 sets, daily range): BP systolic 134–159; BP diastolic 82–87; PULSE 65–89; RESP 10–23; TEMP 35.9; O2SAT 90–97
--- NOTE | 2023-11-07 13:00 | DI.CT_ITS ---
Exam(s) CT BRAIN NECK CTA EXAM: CT BRAIN NECK CTA CLINICAL HISTORY: Right side neck pain, headache, on thinners. TECHNIQUE: Imaging Protocol: Axial CT angiography was performed with multi-slice acquisition and mu lti-planar and/or 3D reconstructions. CONTRAST MATERIAL: Intravenous: Omnipaque 350 Contrast volume:structured data in ml COMPARISON: No exams were available for comparison FINDINGS: CTA Neck W: Aortic arch anatomy: Aortic arch and origin of the great vessels not included in the field of view. Anterior circulation: The visualized common carotid arteries ascend with normal luminal diameters. At the level the carotid bulbs and proximal internal carotid arteries there is no significant plaque and no significant stenosis evident. Posterior circulation: Both vertebral arteries originate in conventional fashion off of the subclavian arteries and there is no obvious stenosis at the origin of the vertebral arteries. Both vertebral arteries exhibit normal luminal diameters within the foramen transversarium. No evidence of intraluminal thrombosis nor dissection of the vertebral arteries. Both vertebral arteries contribute to the formation of the basilar artery at the skull base. CTA Brain W: Anterior circulation: Both internal carotid arteries are patent in the skull base-carotid canals as well as within the cave rnous sinuses. The supraclinoid aspects of the ICAs are patent. Both A1 segments are patent as are the anterior cer ebral arteries and there is no evidence of aneurysm at the level of the anterior communicating artery . Both middle cerebral arteries are patent with no evidence of significant stenosis nor intraluminal th rombus. There also no aneurysms of these vessels. Posterior circulation: The basilar artery ascends in the midline. Distally it gives off patent bilateral superior cerebella r arteries. Above this level the basilar artery terminates as patent bilateral posterior cerebral arteries. There is no evidence of aneurysm at the tip of the basilar artery nor elsewhere in the [id number] is. CT BRAIN: There is no evidence of intracranial hemorrhage, mass effect, or shift of midline structures. There are no extra-axial fluid collections. Ventricles are not enlarged or shifted. There are no ring enh ancing lesions in the brain and no abnormal meningeal enhancement. IMPRESSION: 1. Patent carotid arteries in the neck. No hemodynamically significant stenosis. Please note that t he aortic arch and origin of the great vessels off the aortic arch are not included in the field of v iew of this study. 2. Patent vertebral arteries. No intraluminal thrombus, stenosis, nor dissection. 3. Patent intracranial arteries. 4. No significant intracranial findings. Also no ring enhancing lesions in the brain nor abnormal me ningeal enhancement. RADIATION DOSE DELIVERED: Total DLP DATA REPOSITORY: All CT scans at this facility are submitted to the National Radiology Data Registry (NRDR) Dose Index Registry (DIR) with the [employer] (ACR). RADIATION OPTIMIZATION: All CT scans at this facility use at least one of these dose optimization te chniques: automated exposure control; mA and/or kV adjustment per patient size (includes targeted exa ms where dose is matched to clinical indication); or iterative reconstruction.
--- NOTE | 2023-11-07 13:22 | ED.GENADUL_ITS ---
Discharge Plan Discharge Details Chief Complaint: Headache Primary Care Provider: Marino Swartz ED Provider: Dottie Paul Home Meds and New Rx's Prescriptions: No Action rosuvastatin [Crestor] 5 mg tablet 5 mg PO DAILY Qty: 90 3RF Eliquis 5 mg tablet 5 mg PO BID Qty: 180 3RF omeprazole 20 mg capsule,delayed release(DR/EC) 20 mg PO DAILY Qty: 90 3RF HPI General Mode of arrival: ambulatory . Date/Time Provider Initiated Documentation: 11/07/23 12:54 . Limitations to Documentation: no limitations . Information obtained by: patient, RN notes reviewed and old records reviewed . 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 She reports that the pain and stiffness has now radiated into the right lateral neck and into her shoulder. Pain gets worse when she raises her arm, she does report some photosensitivity denies any blurry vision or diplopia, she has no facial droop noted on initial presentation, no focal neurodeficits noted. She also does report a rash which she has had for the last month to her extremities abdomen and back, denies any nausea vomiting diarrhea, denies any chest pain shortness of breath. She does report that she did have some increased work yesterday. She took extra strength Tylenol arthritis this morning. She denies any ear pain. She does have increased pain with neck rotation and extension. She describes as a shooting pain. Denies any numbness tingling or weakness in her extremities. No pronator drift on initial exam, no leg drop. Related Data Home Medications ?Medication ?Instructions ?Recorded ?Confirmed apixaban 5 mg tablet (Eliquis) 5 mg PO BID #180 tabs 12/20/22 11/07/23 rosuvastatin 5 mg tablet (Crestor) 5 mg PO DAILY #90 tabs 04/25/23 11/07/23 omeprazole 20 mg capsule,delayed 20 mg PO DAILY #90 tab-caps 06/15/23 11/07/23 release Previous Rx's ?Medication ?Instructions ?Recorded apixaban 5 mg tablet (Eliquis) 5 mg PO BID #180 tabs 12/20/22 rosuvastatin 5 mg tablet (Crestor) 5 mg PO DAILY #90 tabs 04/25/23 omeprazole 20 mg capsule,delayed 20 mg PO DAILY #90 tab-caps 06/15/23 release Allergies Allergy/AdvReac Type Severity Reaction Status Date / Time codeine Allergy Severe Anaphylaxsi Verified 11/07/23 13:00 s gabapentin Allergy Severe Decreased Verified 11/07/23 13:00 level of consciousness baclofen AdvReac Severe SEVERE Verified 11/07/23 13:00 MUSCLE WEAKNESS prednisone AdvReac Severe DIARRHEA Verified 11/07/23 13:00 lamotrigine (From Lamictal) AdvReac Intermediate GI Upset, Verified 11/07/23 13:00 Diarrhea metal Allergy Mild Rash Uncoded 11/07/23 13:00 fruit Allergy Unknown Unknown Uncoded 11/07/23 13:00 General Stated Complaint: Headache VENUS: 2 Review of Systems All systems reviewed & are unremarkable except as noted in HPI and below Constitutional Constitutional: Reports as per HPI, Denies fever(s), Reports headache(s) and Denies weakness Eyes Eyes: Denies diplopia, Reports floaters, Denies loss of vision, Reports other visual disturbances, Reports seeing flashes and Reports spots in vision ENT Ears, Nose, Mouth, and Throat: Reports as per HPI, Denies abnormal hearing, Denies change in voice, Denies dizziness, Reports facial pain, Reports headache(s), Reports neck pain, Denies disequilibrium and Denies sore throat Cardiovascular Cardiovascular: Denies chest pain, Reports leg edema (Bilaterally, not acute), Denies palpitations and Denies dyspnea Respiratory Respiratory: Denies chest congestion, Denies cough, Denies hemoptysis, Denies dyspnea and Denies wheezing Gastrointestinal Gastrointestinal: Denies abdominal pain, Denies diarrhea, Denies nausea and Denies vomiting Genitourinary Genitourinary: Denies abnormal vaginal bleeding, Denies dysuria, Denies urinary incontinence and Denies urinary urgency Musculoskeletal Musculoskeletal: Reports as per HPI, Reports neck pain, Denies numbness, Reports radiating pain into limb (Right shoulder) and Reports stiffness Integumentary/Breasts Skin/Breast: Reports rash Neurologic Neurologic: Denies abnormal hearing, Denies dizziness, Reports headache(s), Denies localized weakness, Denies loss of vision, Denies memory loss, Denies numbness, Reports other visual disturbances (Photosensitivity), Denies convulsions, Denies disequilibrium and Denies weakness Psychiatric Psychiatric: Denies memory loss Endocrine Endocrine: Denies palpitations Hematologic/Lymphatic Hematologic/Lymphatic: Reports easy bruising Allergic/Immunologic Allergic/Immunologic: Denies wheezing Exam Narrative Exam Narrative: Constitutional: Alert and oriented x3. Appears stated age. Normal body habitus. Head: Normocephalic, no trauma. Eyes: Pupils PERRL, Red reflex noted, EOM's intact. Eyelids symmetrical without lesions, discharge, or swelling. ENT: Bilateral TM's WNL, External ear normal to inspection, no mastoid TTP, swelling, or erythema, Nasal turbinates WNL, no nasal discharge. Normal dentition, Posterior pharynx WNL, no exudate. Right temporal tenderness with palpation. No TMJ tenderness. Chest: RRR, Normal S1, S2, distal pulses intact. Resp: Lungs clear to auscultation bilaterally, no wheezes, rales, or rhonchi. Abdomen: Soft, non-distended, Normoactive bowel sounds all 4 quads. Musculoskeletal: Normal gait, Moves all 4 extremities without difficulty. Skin: She does have isolated confluent maculopapular rash noted to bilateral lower extremities, maculopapular rash noted to abdomen upper extremities and back irregular borders. No vesicles or crusting noted, capillary refill less than 2 sec. does have some midline C-spine tenderness to palpation and right lateral supraspinous tenderness, increased tenderness with rotation to the right and extension of the neck. Neurologic: Cranial nerves II-XII intact. Alert and oriented x 3. Motor: No deficits noted. Sensory: Intact bilaterally all 4 extremities. No facial droop noted, no pronator drift, no leg drop. Hematologic/Lymphatic: No ecchymosis, no lymphadenopathy. Course Vital Signs Vital signs: Vital Signs Temperature 35.9 C L 11/07/23 12:56 Pulse 84 11/07/23 12:56 Respiratory Rate 18 11/07/23 12:56 Blood Pressure 159/85 H 11/07/23 12:56 Pulse Oximetry 93 11/07/23 12:56 Temperature 35.9 C L 11/07/23 12:56 Temperature Source Skin 11/07/23 12:56 Pulse 84 11/07/23 12:56 Respiratory Rate 18 11/07/23 12:56 Blood Pressure 159/85 H 11/07/23 12:56 Blood Pressure Position Sitting 11/07/23 12:56 Pulse Oximetry 93 11/07/23 12:56 Oxygen Delivery Method Room Air 11/07/23 12:56 Oxygen Flow Rate 0 11/07/23 12:56 Pain Level 1 11/07/23 12:56 Medical Decision Making Myoclonic muscular dystrophy, obstructive sleep apnea, GERD, 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 She reports that the pain and stiffness has now radiated into the right lateral neck and into her shoulder. Pain gets worse when she raises her arm, she does report some photosensitivity denies any blurry vision or diplopia, she has no facial droop noted on initial presentation, no focal neurodeficits noted. She also does report a rash which she has had for the last month to her extremities abdomen and back, denies any nausea vomiting diarrhea, denies any c hest pain shortness of breath. She does report that she did have some increased work yesterday. She took extra strength Tylenol arthritis this morning. She denies any ear pain. She does have increased pain with neck rotation and extension. She describes as a shooting pain. Denies any numbness tingling or weakness in her extremities. No pronator drift on initial exam, no leg drop. CVA TIA workup ordered including CBC CMP, PT/INR, troponin, CTA brain and neck. Urinalysis. Differential diagnosis includes but not limited to cervical strain, pinched nerve, cervical radiculopathy, osteoarthritis, temporal arteritis, trigeminal neuralgia, CVA, TIA, cluster headache, atypical migraine, Patient currently in CT, care is to be handed off to oncoming provider YANETH Perez pending CTA brain and neck, repeat troponin. Discussed patient case in details with him he verbalized understanding. Medical Records Medical records reviewed: Yes I reviewed the patient's medical records. Lab Data Lab results reviewed: Yes I reviewed the patient's lab results. Labs: Laboratory Tests Range/Units 11/07/23 11/07/23 13:29 13:48 WBC (4.4-10.8) 10^3/uL 4.58 RBC (3.93-5.22) 10^6/uL 4.67 Hgb (11.2-15.7) g/dL 15.2 Hct (36.0-46.0) % 47.8 H MCV (80-95) fL 102 H MCH (27.0-33.0) pg 32.5 MCHC (32.0-36.0) % 31.8 L RDW (11.7-14.6) % 13.0 Plt Count (130-400) 10^3/uL 155 MPV (8.0-11.0) fL 11.1 H Immature Gran % % 0.2 Neutrophils % % 42.6 Lymphocytes % % 46.5 Monocytes % % 8.1 Eosinophils % % 1.5 Basophils % % 1.1 Nucleated RBC % (0.0-0.3) % 0.0 Absolute Neutrophils (1.2-6.7) 10^3/uL 1.95 Absolute Lymphocytes (1.2-3.4) 10^3/uL 2.13 Absolute Monocytes (0.1-0.8) 10^3/uL 0.37 Absolute Eosinophils (0.0-0.7) 10^3/uL 0.07 Absolute Basophils (0.0-0.2) 10^3/uL 0.05 PT (9.1-11.1) sec 10.7 INR (0.9-1.1) 1.1 Sodium (136-145) mmol/L 144 Potassium (3.5-5.1) mmol/L 4.6 Chloride (98-107) mmol/L 107 Carbon Dioxide (21.0-32.0) mmol/L 30.2 Anion Gap (3-11) mmol/L 6.8 BUN (7-18) mg/dL 10 Creatinine (0.55-1.02) mg/dL 0.7 Est GFR (CKD-EPI 2020) (mL/min/1.73m2) 91.83 Glucose (74-106) mg/dL 107 H Calcium (8.5-10.1) mg/dL 9.1 Magnesium (1.8-2.4) mg/dL 2.3 Total Bilirubin (0.2-1.0) mg/dL 0.44 AST (15-37) U/L 31 ALT (14-59) U/L 30 Alkaline Phosphatase (46-116) U/L 176 H Troponin I (< or =60) ng/L < 50 Total Protein (6.4-8.2) g/dL 7.1 Albumin (3.4-5.0) g/dL 3.7 Quality:[facility] Health Related Social Needs: No Data to Display PFSH All Active Problems Rash (Acute) Pre-syncope (Acute) Post-nasal drainage (Acute) SOB (shortness of breath) (Acute) Hyperlipidemia LDL goal <130 (Acute) Hip pain, right (Acute) Elevated serum alkaline phosphatase level (Acute) Chronic insomnia (Acute) Hyperkalemia (Acute) Pain in left hip (Acute) Low back pain (Acute) Normal colonoscopy (Acute) Colitis (Acute) Dysphagia (Acute) DVT (deep venous thrombosis) (Acute 10/29/14) unprovoked DVT right leg 06/01, now on apixaban per [facility] hematology Tinnitus (Acute) Dupuytrens contracture (Acute) rt hand Change in stool habits (Acute) Fatigue (Acute) Dizziness (Acute) Endometriosis (Acute) Hematuria (Acute) History of cataract removal with insertion of prosthetic lens (Acute) History of partial surgical removal of colon (Acute 10/06/14) History of tobacco use (Acute) Status post cholecystectomy (Acute) Status post tonsillectomy (Acute) Status post vaginal hysterectomy (Acute) 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 Sotomayor 09/13/13 Irritable colon (Acute) Myotonic muscular dystrophy (Acute) Polyp of colon (Acute) 01/14/11; COLONOSCOPY; TUBULAR ADENOMA Medical History Cataract GERD (gastroesophageal reflux disease) SHANNAN (obstructive sleep apnea) Granuloma annulare Surgical History Tonsillectomy Vaginal hysterectomy partial colectomy due to endometriosis Colonoscopy - MAC (01/22/16) 01/14/11; DR. FAUSTIN Cholecystectomy Extraction of cataract (02/01/13) 02/01/13; RIGHT 01/27/15; LEFT Family History Mother , 85 Essential hypertension Heart disease Hyperlipidemia Father , 71 Neoplasm LUNG Myotonic muscular dystrophy Brother Essential hypertension Hyperlipidemia Diverticulosis Grandfather Heart disease Myocardial infarction Grandmother Heart disease Grandmother Myotonic muscular dystrophy STRONG PATERNAL HISTORY Myotonic muscular dystrophy UNCLES, AUNTS, BROTHERS AND COUSINS Brother No problems noted. Brother High cholesterol Social History Smoking/Tobacco Use Status: Former Tobacco Use tobacco type: cigarettes Quit Date: 03/01/07 Tobacco: How many years used: 40 Second Hand Exposure: Yes Smoking risk assessment performed?: Yes Alcohol Intake: current Alcohol Intake frequency: holidays/special occasions only Drug use: Never Substance use type: does not use Caregiver/Support person: No Household members: none Housing: house Communication Needs: None Do you need help understanding health information?: Rarely Pets and animals: Yes Pets and animals: cat(s) and dog(s) Sexually active: No How often do you talk on the phone with friends or family?: three or more times per week How often do you get together with friends or relatives?: once per week Panel score (0-1 are the most socially isolated patients): 1 What type of physical activity do you participate in: swimming Duration: 45-60 minutes/day Frequency: 1-2 times per week Veda/[employer]ist: No preference Special veda needs: No Seatbelt use: always Helmet use: No Drive intox or ride w/intox street flusher driver: No Do you feel safe at home: Yes Do you feel safe in your relationship?: Yes Sign Out Sign Out Data: Sign Out Comment: Here with right-sided headache now radiating into the right side of her neck and shoulder she describes it as sharp and shooting she reports facial droop this morning which has since resolved. She is on Eliquis for DVTs. She is alert and oriented x 4 no focal motor neurodeficits on arrival. Does also have a rash which she has had for a month history of myoclonic muscular dystrophy. Pending CTA brain and neck. Last updated by Dottie Paul NP at 11/07/23 15:50
[2023-11-07 13:40] LABS: Abs Immature Grans 0.01 10^3/uL (0.0-0.06); Absolute Basophil Count 0.05 10^3/uL (0.0-0.2); Absolute Eosinophil Count 0.07 10^3/uL (0.0-0.7); Absolute Lymphocyte Count 2.13 10^3/uL (1.2-3.4); Absolute Monocyte Count 0.37 10^3/uL (0.1-0.8); Absolute Neutrophil Count 1.95 10^3/uL (1.2-6.7); Basophils % 1.1 %; Eosinophils % 1.5 %; HCT 47.8 % (36.0-46.0); HGB 15.2 g/dL (11.2-15.7); Immature Grans % 0.2 %; Lymphocytes % 46.5 %; MCH 32.5 pg (27.0-33.0); MCHC 31.8 % (32.0-36.0); MCV 102 fL (80-95); MPV 11.1 fL (8.0-11.0); Monocytes % 8.1 %; Neutrophils % 42.6 %; Platelet Count 155 10^3/uL (130-400); RBC 4.67 10^6/uL (3.93-5.22); RDW-SD 49.5 fL; WBC 4.58 10^3/uL (4.4-10.8)
[2023-11-07] MEDS: Lidocaine 5% Patch 1 PATCH TP (13:52)
[2023-11-07 13:56] LABS: ALT 30 U/L (14-59); AST 31 U/L (15-37); Albumin 3.7 g/dL (3.4-5.0); Alkaline Phosphatase 176 U/L (46-116); Anion Gap 6.8 mmol/L (3-11); BUN 10 mg/dL (7-18); Bilirubin, Total 0.44 mg/dL (0.2-1.0); CO2 30.2 mmol/L (21.0-32.0); CREATININE 0.7 mg/dL (0.55-1.02); Calcium 9.1 mg/dL (8.5-10.1); Chloride 107 mmol/L (98-107); Estimated GFR 91.83 (mL/min/1.73m2); Glucose 107 mg/dL (74-106); Magnesium 2.3 mg/dL (1.8-2.4); Potassium 4.6 mmol/L (3.5-5.1); Sodium 144 mmol/L (136-145); Total Protein 7.1 g/dL (6.4-8.2); Troponin I < 50 ng/L (< or =60)
[2023-11-07 14:10] LABS: INR 1.1 (0.9-1.1); Prothrombin Time 10.7 sec (9.1-11.1)
[2023-11-07] MEDS: Normal Saline - Diluent 50 ML VIAL IJ (15:41)
[2023-11-07] MEDS: Omnipaque 350 MG/ML 500 ML BTL-Imaging package IJ (15:41)
[2023-11-07 15:56] LABS: Lab Add On Test DONE
[2023-11-07 16:06] LABS: C-Reactive Protein < 0.50 mg/dL (<or=0.5)
[2023-11-07 16:08] LABS: ESR 11 mm/hr (0-30)
[2023-11-07 16:22] LABS: Bilirubin Negative (Negative); Blood Negative (Negative); Clarity Clear (Clear); Glucose Negative (Negative); Ketones Negative (Negative); Leukocyte Esterase Negative (Negative); Nitrite Negative (Negative); Urobilinogen 0.2 mg/dL (Up to 0.2)
--- NOTE | 2023-11-07 16:34 | W.EDPROG ---
Date of service: 11/07/23 Time of Service: 16:34 Medical Decision Making This dictation utilizes [id number] dictation software and may contain unedited grammatical errors. Patient seen in sign-out from Dottie Paul NP - please see her complete note. Essentially this 73 y/o F presents to ED today with a chief complaint of R sided DAMIAN and neck, possible torticollis-type presentation with some discomfort with neck extension and twisting, tenderness to touch with shooting pains at R lateral neck. Patient stated she had some R eye drooping this morning with her headache that resolved, denied visual changes or focal weakness/sensory deficit. Patients' medical history: Cataract, chronic low back pain, history of DVT, muscular dystrophy, left facial pain. Family and social history: noncontributory. Pertinent exam findings / vital signs include no focal neuro deficits noted at sign-out. Differential / pathologies of concern include torticollis, migraine syndrome, per prior provider possible neuropathic or vasculitic pain like trigeminal neuralgia or temporal arteritis. Diagnostic studies of: -CBC, CMP, serial troponins, magnesium, PT, urinalysis, CRP/ESR, CTA brain and neck, tick and Lyme panel send note. -CBC CBC is unremarkable -Inflammatory markers are negative do not suspect temporal arteritis, has no pain to light touch -PT and INR unremarkable -Serial troponins negative, no chest pain or cardiac suspicion -CMP is benign with nonspecific elevation of alk phos -Serial troponins negative -UA is benign -CTA head neck shows no stenosis or atherosclerosis of cerebral vessels, no stroke or intracranial hemorrhage Interventions of: -Patient had previously received a Lidoderm patch, plan to prescribe methocarbamol for musculoskeletal neck pain. ED Course/Assessment/Plan: 73-year-old female with right lateral neck pain seen in signout, CTA head and is negative, labs are unremarkable, there is no elevation of inflammatory markers to suggest vasculitic pathology, she does not have a syndrome consistent with temporal arteritis or trigeminal neuralgia, she reported some eye drooping with headache onset this morning, right-sided classic for migraine, question patient's torticollis presentation and will treat with methocarbamol for muscle relaxation, encouraged continued Lidoderm patches, Tylenol and gentle heat and ice to the area of pain, strict return criteria for any neurologic changes including weakness, visual changes, facial droop, slurred speech, confusion, headache with fevers. Findings not consistent with stroke, CVA or TIA, temporal arteritis, trigeminal neuralgia, neurovascular compromise, vertebral fracture. Disposition of musculoskeletal neck pain. Patient verbalized understanding of the plan and return to ED criteria and engaged in shared decision making. Medical Records Medical records reviewed: Yes I reviewed the patient's medical records. Imaging Data Radiologic Study: Attestation: I personally reviewed and interpreted this imaging study as follows: Imaging: CT Scan Radiologist's impression: EXAM: CT BRAIN NECK CTA CLINICAL HISTORY: Right side neck pain, headache, on thinners. TECHNIQUE: Imaging Protocol: Axial CT angiography was performed with multi-slice acquisition and multi-planar and/or 3D reconstructions. CONTRAST MATERIAL: Intravenous: Omnipaque 350 Contrast volume:structured data in ml COMPARISON: No exams were available for comparison FINDINGS: CTA Neck W: Aortic arch anatomy: Aortic arch and origin of the great vessels not included in the field of view. Anterior circulation: The visualized common carotid arteries ascend with normal luminal diameters. At the level the carotid bulbs and proximal internal carotid arteries there is no significant plaque and no significant stenosis evident. Posterior circulation: Both vertebral arteries originate in conventional fashion off of the subclavian arteries and there is no obvious stenosis at the origin of the vertebral arteries. Both vertebral arteries exhibit normal luminal diameters within the foramen transversarium. No evidence of intraluminal thrombosis nor dissection of the vertebral arteries. Both vertebral arteries contribute to the formation of the basilar artery at the skull base. CTA Brain W: Anterior circulation: Both internal carotid arteries are patent in the skull base-carotid canals as well as within the cavernous sinuses. The supraclinoid aspects of the ICAs are patent. Both A1 segments are patent as are the anterior cerebral arteries and there is no evidence of aneurysm at the level of the anterior communicating artery. Both middle cerebral arteries are patent with no evidence of significant stenosis nor intraluminal thrombus. There also no aneurysms of these vessels. Posterior circulation: The basilar artery ascends in the midline. Distally it gives off patent bilateral superior cerebellar arteries. Above this level the basilar artery terminates as patent bilateral posterior cerebral arteries. There is no evidence of aneurysm at the tip of the basilar artery nor elsewhere in the [id number]. CT BRAIN: There is no evidence of intracranial hemorrhage, mass effect, or shift of midline structures. There are no extra-axial fluid collections. Ventricles are not enlarged or shifted. There are no ring enhancing lesions in the brain and no abnormal meningeal enhancement. IMPRESSION: 1. Patent carotid arteries in the neck. No hemodynamically significant stenosis. Please note that the aortic arch and origin of the great vessels off the aortic arch are not included in the field of view of this study. 2. Patent vertebral arteries. No intraluminal thrombus, stenosis, nor dissection. 3. Patent intracranial arteries. 4. No significant intracranial findings. Also no ring enhancing lesions in the brain nor abnormal meningeal enhancement. Lab Data Lab results reviewed: Yes I reviewed the patient's lab results. Labs: Laboratory Tests Range/Units 11/07/23 11/07/23 11/07/23 13:29 13:48 14:44 WBC (4.4-10.8) 10^3/uL 4.58 RBC (3.93-5.22) 10^6/uL 4.67 Hgb (11.2-15.7) g/dL 15.2 Hct (36.0-46.0) % 47.8 H MCV (80-95) fL 102 H MCH (27.0-33.0) pg 32.5 MCHC (32.0-36.0) % 31.8 L RDW (11.7-14.6) % 13.0 Plt Count (130-400) 10^3/uL 155 MPV (8.0-11.0) fL 11.1 H Immature Gran % % 0.2 Neutrophils % % 42.6 Lymphocytes % % 46.5 Monocytes % % 8.1 Eosinophils % % 1.5 Basophils % % 1.1 Nucleated RBC % (0.0-0.3) % 0.0 Absolute Neutrophils (1.2-6.7) 10^3/uL 1.95 Absolute Lymphocytes (1.2-3.4) 10^3/uL 2.13 Absolute Monocytes (0.1-0.8) 10^3/uL 0.37 Absolute Eosinophils (0.0-0.7) 10^3/uL 0.07 Absolute Basophils (0.0-0.2) 10^3/uL 0.05 ESR (0-30) mm/hr 11 PT (9.1-11.1) sec 10.7 INR (0.9-1.1) 1.1 Sodium (136-145) mmol/L 144 Potassium (3.5-5.1) mmol/L 4.6 Chloride (98-107) mmol/L 107 Carbon Dioxide (21.0-32.0) mmol/L 30.2 Anion Gap (3-11) mmol/L 6.8 BUN (7-18) mg/dL 10 Creatinine (0.55-1.02) mg/dL 0.7 Est GFR (CKD-EPI 2020) (mL/min/1.73m2) 91.83 Glucose (74-106) mg/dL 107 H Calcium (8.5-10.1) mg/dL 9.1 Magnesium (1.8-2.4) mg/dL 2.3 Total Bilirubin (0.2-1.0) mg/dL 0.44 AST (15-37) U/L 31 ALT (14-59) U/L 30 Alkaline Phosphatase (46-116) U/L 176 H Troponin I (< or =60) ng/L < 50 C-Reactive Protein (<or=0.5) mg/dL < 0.50 Total Protein (6.4-8.2) g/dL 7.1 Albumin (3.4-5.0) g/dL 3.7 Urine Color (Yellow) Urine Clarity (Clear) Urine pH (5-8) Ur Specific [place] (1.005-1.025) Urine Protein (Neg-Trace) mg/dL Urine Ketones (Negative) mg/dL Urine Blood (Negative) Urine Nitrite (Negative) Urine Bilirubin (Negative) Urine Urobilinogen (Up to 0.2) mg/dL Ur Leukocyte Esterase (Negative) Urine Glucose (Negative) mg/dL Add-On Test Request DONE Range/Units 11/07/23 11/07/23 16:10 16:15 WBC (4.4-10.8) 10^3/uL RBC (3.93-5.22) 10^6/uL Hgb (11.2-15.7) g/dL Hct (36.0-46.0) % MCV (80-95) fL MCH (27.0-33.0) pg MCHC (32.0-36.0) % RDW (11.7-14.6) % Plt Count (130-400) 10^3/uL MPV (8.0-11.0) fL Immature Gran % % Neutrophils % % Lymphocytes % % Monocytes % % Eosinophils % % Basophils % % Nucleated RBC % (0.0-0.3) % Absolute Neutrophils (1.2-6.7) 10^3/uL Absolute Lymphocytes (1.2-3.4) 10^3/uL Absolute Monocytes (0.1-0.8) 10^3/uL Absolute Eosinophils (0.0-0.7) 10^3/uL Absolute Basophils (0.0-0.2) 10^3/uL ESR (0-30) mm/hr PT (9.1-11.1) sec INR (0.9-1.1) Sodium (136-145) mmol/L Potassium (3.5-5.1) mmol/L Chloride (98-107) mmol/L Carbon Dioxide (21.0-32.0) mmol/L Anion Gap (3-11) mmol/L BUN (7-18) mg/dL Creatinine (0.55-1.02) mg/dL Est GFR (CKD-EPI 2020) (mL/min/1.73m2) Glucose (74-106) mg/dL Calcium (8.5-10.1) mg/dL Magnesium (1.8-2.4) mg/dL Total Bilirubin (0.2-1.0) mg/dL AST (15-37) U/L ALT (14-59) U/L Alkaline Phosphatase (46-116) U/L Troponin I (< or =60) ng/L < 50 C-Reactive Protein (<or=0.5) mg/dL Total Protein (6.4-8.2) g/dL Albumin (3.4-5.0) g/dL Urine Color (Yellow) Yellow Urine Clarity (Clear) Clear Urine pH (5-8) 7.0 Ur Specific [place] (1.005-1.025) 1.010 Urine Protein (Neg-Trace) mg/dL Negative Urine Ketones (Negative) mg/dL Negative Urine Blood (Negative) Negative Urine Nitrite (Negative) Negative Urine Bilirubin (Negative) Negative Urine Urobilinogen (Up to 0.2) mg/dL 0.2 Ur Leukocyte Esterase (Negative) Negative Urine Glucose (Negative) mg/dL Negative Add-On Test Request Quality:SD[facility] Health Related Social Needs: No Data to Display Sign Out Sign Out Data: Sign Out Comment: Here with right-sided headache now radiating into the right side of her neck and shoulder she describes it as sharp and shooting she reports facial droop this morning which has since resolved. She is on Eliquis for DVTs. She is alert and oriented x 4 no focal motor neurodeficits on arrival. Does also have a rash which she has had for a month history of myoclonic muscular dystrophy. Pending CTA brain and neck. Last updated by Dottie Paul NP at 11/07/23 15:50 Discharge Plan Disposition Patient Disposition: Home Condition: Stable Discharge Details Clinical Impression: Musculoskeletal neck pain Primary Care Provider: Marino Swartz ED Provider: Gustavo Back Home Meds and New Rx's Prescriptions: New methocarbamol 750 mg tablet 750 mg PO QID 10 Days Qty: 40 0RF Continued rosuvastatin [Crestor] 5 mg tablet 5 mg PO DAILY Qty: 90 3RF Eliquis 5 mg tablet 5 mg PO BID Qty: 180 3RF omeprazole 20 mg capsule,delayed release(DR/EC) 20 mg PO DAILY Qty: 90 3RF Discharge Instructions Instructions: Methocarbamol, Neck Pain ED Additional Instructions: You were seen in the emergency department for your right lateral neck pain, this is likely musculoskeletal in nature, your headache this morning was a possible migraine syndrome, some eye drooping is normal with certain kinds of migraines. Please take regular doses of Tylenol, have sent a muscle relaxer called methocarbamol to [facility] in [place]. Please use this as directed, keep applying [id number]-[id number] lidocaine patches to the area, apply gentle heat and ice to the area and gentle massage to the area. Please return to the emergency department for any neurological changes like dizziness, slurred speech, facial droop, focal weakness, severe headache with fever or other acute emergent concerns. Referrals: Marino Swartz MD [Primary Care Provider] -
[2023-11-07 16:38] LABS: Troponin I < 50 ng/L (< or =60)
[2023-11-08 11:42] LABS: Lyme Ab w Rflx to Lyme Confirm Negative (Negative)
[2023-11-09 20:23] LABS: Anaplasma phagocytophilum Negative (Negative); B. miyamotoi PCR Negative (Negative); Babesia divergens/MO-1 Negative (Negative); Babesia duncani Negative (Negative); Babesia microti Negative (Negative); Ehrlichia chaffeensis Negative (Negative); Ehrlichia ewingii/canis Negative (Negative); Ehrlichia muris eauclairensis Negative (Negative)
== END 2023-11-07 17:50 | disposition home or self-care (01) ==
PROVIDERS: Registered Nurse Emergency; Emergency Provider Physician Assistant; PCP Family Medicine
DX: M54.2 Cervicalgia (principal); G71.11 Myotonic muscular dystrophy; E78.5 Hyperlipidemia, unspecified; Z86.718 Personal history of other venous thrombosis and embolism; Z79.01 Long term (current) use of anticoagulants; Z87.891 Personal history of nicotine dependence
CPT/HCPCS: 00123; 70496; 70498; 80053; 82962; 85652; 87798; 99285; 81003; 83735; 84484; 85025; 85610; 86140; 86618; 99284

== ENCOUNTER 2023-12-20 00:47 | Outpatient (CLI) | payer MEDICARE, SELFPAY ==
--- NOTE | 2023-12-20 07:43 | DI.MAMMO_ITS ---
Exam(s) MAMMO SCREENING EXAM: MAMMO SCREENING CLINICAL HISTORY: screening,z12.39 TECHNIQUE: Bilateral full field digital CC and MLO mammographic images were obtained with 3D tomosyn thesis and utilizing computer aided detection (CAD). COMPARISON: Available for comparison. FINDINGS: Masses/Architectural Distortion: None seen. Microcalcifications: No suspicious pleomorphic-type are seen. Skin Thickening/Nipple Retraction: None. IMPRESSION: 1. No significant interval change with no specific features of malignancy noted. 2. Unless there is more urgent need, screening mammography is recommended, as per [employer] guidelines. BI-RADS Category 1 - Negative Breast Density - Category C - Heterogeneously dense Breast density category C or D implies that the patient has dense breast tissue. Dense breast tissue is very common and is not abnormal but dense breast tissue can make it harder to find cancer on a ma mmogram. Also, dense breast tissue may increase their breast cancer risk. This information about the result of the mammogram report was provided to the patient to raise their awareness. Use this report when you speak with the patient about their risks for breast cancer, which includes their family hist ory. At that time, you may recommend for more screening tests (Ultrasound or MRI) as they might be us eful based on their risk. A negative radiographic report should not delay biopsy if a dominant or clinically suspicious mass is present. Up to ten percent of cancers are not identified on mammography. A negative report may reinforce clinical impression. Adenosis and dense breasts may obscure an underlying neoplasm. False positive reports average 6 to 10%. Patient will receive a letter notifying them of these results.
== END 2023-12-20 01:07 ==
PROVIDERS: PCP Family Medicine; Visit Provider Family Medicine
DX: Z12.31 Encounter for screening mammogram for malignant neoplasm of breast (principal)
CPT/HCPCS: 77063; 77067

== ENCOUNTER 2024-05-20 05:18 | Emergency (ER) | payer MEDICARE, SELFPAY ==
[2024-05-20] VITALS (49 sets, daily range): BP systolic 73–116; BP diastolic 48–74; PULSE 75–120; RESP 10–32; TEMP 37.3; O2SAT 88–100
--- NOTE | 2024-05-20 05:00 | RT.EKG_ITS ---
APPROVED REPORT Exam: Resting ECG Reason for Exam: SOB Patient Location: E HR:90 bpm ECG Measurements Heart Rate 90 AXIS MN 195 P 59 QRSd 85 QRS 49 QT 347 T 58 QTc 425 Conclusion Sinus rhythm...normal P axis, V-rate 60- [address] segment or T wave abnormalities to suggest occlusive OR
--- NOTE | 2024-05-20 05:30 | DI.RAD_ITS ---
Exam(s) XR CHEST 2V PA LATERAL EXAM: XR CHEST 2V PA LATERAL CLINICAL HISTORY: SOB TECHNIQUE: 2D digital imaging was performed. Two views. COMPARISON: CT CT CHEST WO from 02/10/2023 FINDINGS: HEART: Normal size. Aorta: Not dilated. PULMONARY VASCULATURE: Normal. MEDIASTINUM: Unremarkable. LUNGS: Clear. PLEURAL SPACE: No pleural effusion or pneumothorax. BONE:Unremarkable for age. SOFT TISSUES: Unremarkable. IMPRESSION: No acute abnormality. DATA REPOSITORY: RADIATION DOSE DELIVERED:
[2024-05-20 06:11] LABS: BE (Venous) 5 mmol/L (-2-3); HCO3 (Venous) 31 mmol/L (23-28); O2 Sat (Venous) 40 %; TCO2 (Venous) 28 mmol/L (24-29); pCO2 (Venous) 56 mmHg (41-51); pH (Venous) 7.35 (7.31-7.41); pO2 (Venous) 24 mmHg
[2024-05-20 06:12] LABS: Abs Immature Grans 0.01 10^3/uL (0.0-0.06); Absolute Basophil Count 0.03 10^3/uL (0.0-0.2); Absolute Eosinophil Count 0.03 10^3/uL (0.0-0.7); Absolute Lymphocyte Count 0.64 10^3/uL (1.2-3.4); Absolute Neutrophil Count 3.11 10^3/uL (1.2-6.7); Basophils % 0.7 %; Eosinophils % 0.7 %; HCT 45.5 % (36.0-46.0); HGB 14.4 g/dL (11.2-15.7); Immature Grans % 0.2 %; Lymphocytes % 14.8 %; MCH 32.8 pg (27.0-33.0); MCHC 31.6 % (32.0-36.0); MCV 104 fL (80-95); MPV 10.1 fL (8.0-11.0); Monocytes % 11.6 %; Platelet Count 141 10^3/uL (130-400); RBC 4.39 10^6/uL (3.93-5.22); RDW-SD 50.1 fL; WBC 4.32 10^3/uL (4.4-10.8)
[2024-05-20] MEDS: Albuterol/Ipratropium 3 ML UPD VIAL UPD ×2 (06:16→07:37)
[2024-05-20] MEDS: Normal Saline 1,000 ML 1000 ML IV (06:17)
[2024-05-20 06:22] LABS: COVID-19 PCR Negative (Negative); Influenza B PCR Negative (Negative); RSV PCR Negative (Negative)
[2024-05-20 06:25] LABS: Source N
[2024-05-20 06:26] LABS: Influenza A PCR Positive (Negative)
--- NOTE | 2024-05-20 06:30 | ED.GENADUL_ITS ---
Discharge Plan Discharge Details Chief Complaint: RespSymp Primary Care Provider: Marino Swartz ED Provider: Aster Bailey Home Meds and New Rx's Prescriptions: No Action rosuvastatin [Crestor] 5 mg tablet 5 mg PO DAILY Qty: 90 3RF omeprazole 20 mg capsule,delayed release(DR/EC) 20 mg PO DAILY Qty: 90 3RF Eliquis 5 mg tablet 5 mg PO BID Qty: 180 3RF HPI General Mode of arrival: EMS . Date/Time Provider Initiated Documentation: 05/20/24 05:28 . Limitations to Documentation: no limitations . Information obtained by: patient . HPI Narrative: 73yo F with hx of HLD, SHANNAN, DVT on eliquis, myotonic muscular dystrophy, presenting for shortness of breath and lightheadedness. Has had 3 days of cough and shortness of breath, somewhat worse with exertion. Feels generally weak. Lightheaded with standing, feels like she might pass out. Has not lost consciousness. No chest pain or palpitations. Febrile at home, Tmax 102F. Mild nausea, no vomiting. Reports taking good fluids. Otherwise in her usual state of health with no chills, rash, abdominal pain, dysuria, hematuria, falls, or other concerns. Lives alone. Related Data Home Medications ?Medication ?Instructions ?Recorded ?Confirmed omeprazole 20 mg capsule,delayed 20 mg PO DAILY #90 tab-caps 06/15/23 05/20/24 release apixaban 5 mg tablet (Eliquis) 5 mg PO BID #180 tabs 12/14/23 05/20/24 rosuvastatin 5 mg tablet (Crestor) 5 mg PO DAILY #90 tabs 02/01/24 05/20/24 Previous Rx's ?Medication ?Instructions ?Recorded omeprazole 20 mg capsule,delayed 20 mg PO DAILY #90 tab-caps 06/15/23 release apixaban 5 mg tablet (Eliquis) 5 mg PO BID #180 tabs 12/14/23 rosuvastatin 5 mg tablet (Crestor) 5 mg PO DAILY #90 tabs 02/01/24 Allergies Allergy/AdvReac Type Severity Reaction Status Date / Time codeine Allergy Severe Anaphylaxsi Verified 05/20/24 05:29 s gabapentin Allergy Severe Decreased Verified 05/20/24 05:29 level of consciousness baclofen AdvReac Severe SEVERE Verified 05/20/24 05:29 MUSCLE WEAKNESS prednisone AdvReac Severe DIARRHEA Verified 05/20/24 05:29 lamotrigine (From Lamictal) AdvReac Intermediate GI Upset, Verified 05/20/24 05:29 Diarrhea metal Allergy Mild Rash Uncoded 05/20/24 05:29 fruit Allergy Unknown Unknown Uncoded 05/20/24 05:29 General Stated Complaint: RespSymp VENUS: 3 Review of Systems Narrative: see HPI Exam Narrative Exam Narrative: General: Alert, non-toxic, well nourished, in no acute distress. Head: Normocephalic, atraumatic Neck: Trachea midline, ?Neck supple. ENT: ?MMM.? No oropharygeal lesions or exudate. Cardiac: ?RRR, no murmurs appreciated Resp: No respiratory distress. No increased WOB. Slight wheeze bilaterally. Abd: ?Soft, non-distended, nontender : ?No suprapubic tenderness. Extremities: ?No deformities.? No peripheral edema. Neurologic: GCS 15. ? Moves all extremities freely against gravity Course Vital Signs Vital signs: Vital Signs Temperature 37.3 C 05/20/24 05:20 Pulse 89 05/20/24 05:20 Respiratory Rate 16 05/20/24 05:20 Blood Pressure 109/70 05/20/24 05:20 Pulse Oximetry 93 05/20/24 05:20 Temperature 37.3 C 05/20/24 05:20 Temperature Source Tympanic 05/20/24 05:20 Pulse 75 05/20/24 06:17 Pulse 78 05/20/24 06:17 Respiratory Rate 16 05/20/24 06:17 Respiratory Effort Normal, Non-Labored 05/20/24 05:30 Respiratory Depth Normal 05/20/24 05:30 Blood Pressure 73/54 L 05/20/24 06:17 Blood Pressure Mean 59 05/20/24 06:17 Blood Pressure Position Supine 05/20/24 05:20 Pulse Oximetry 100 05/20/24 06:17 Oxygen Delivery Method Room Air 05/20/24 05:20 Oxygen Flow Rate 0 05/20/24 05:20 Lab/Test Results Lab/Test Results: Laboratory Tests Range/Units 05/20/24 05/20/24 05:33 06:00 WBC (4.4-10.8) 10^3/uL 4.32 L RBC (3.93-5.22) 10^6/uL 4.39 Hgb (11.2-15.7) g/dL 14.4 Hct (36.0-46.0) % 45.5 MCV (80-95) fL 104 H MCH (27.0-33.0) pg 32.8 MCHC (32.0-36.0) % 31.6 L RDW (11.7-14.6) % 13.0 Plt Count (130-400) 10^3/uL 141 MPV (8.0-11.0) fL 10.1 Immature Gran % % 0.2 Neutrophils % % 72.0 Lymphocytes % % 14.8 Monocytes % % 11.6 Eosinophils % % 0.7 Basophils % % 0.7 Nucleated RBC % (0.0-0.3) % 0.0 Absolute Neutrophils (1.2-6.7) 10^3/uL 3.11 Absolute Lymphocytes (1.2-3.4) 10^3/uL 0.64 L Absolute Monocytes (0.1-0.8) 10^3/uL 0.50 Absolute Eosinophils (0.0-0.7) 10^3/uL 0.03 Absolute Basophils (0.0-0.2) 10^3/uL 0.03 VBG pH (7.31-7.41) 7.35 VBG pCO2 (41-51) mmHg 56 H VBG pO2 mmHg 24 VBG HCO3 (23-28) mmol/L 31 H VBG Total CO2 (24-29) mmol/L 28 VBG O2 Saturation % 40 VBG Base Excess (-2-3) mmol/L 5 H COVID-19 Source N SARS-CoV-2 (PCR) (Negative) Negative Influenza Type A (PCR) (Negative) Positive A Influenza Type B (PCR) (Negative) Negative RSV (PCR) (Negative) Negative Medical Decision Making 73yo F with hx of HLD, SHANNAN, DVT on eliquis, myotonic muscular dystrophy, presenting for three days of cough and shortness of breath today with significant lightheadedness. Febrile at home, Tmax 102F. Normal vital signs on arrival. Non-toxic appearing, no hypoxia, slight expiratory wheezes. Most likely viral URI; will send swabs and workup for other life-threatening etiologies. Borderline orthostasis on orthostatic vital sign and is symptomatic with standing; will give 1L IVFB. EKG NSR, appropriate intervals, no ST segment or T wave abnormalities to suggest occlusive OK. Respiratory viral swabs + for influenza A. On reassessment pt with BP trending downward, MAP high 50's. Fluids running; will reassess after liter bolus complete. She continues to mentate well and is in no distress. Labs reviewed as below, CBC reassuring with no leukocytosis or anemia, CMP with no actionable abnormalities, VBG with borderline hypercapnea & no significant acidosis, BNP not suggestive of heart failure, initial troponin 12. Dimer pending. CXR independently reviewed; no focal pneumonia or pneumothorax on my view, radiology read pending. Will be signed out to oncoming physician; will to followup dimer, delta troponina, and UA. Will need reassessment after IVFs, as well as ambulatory trial. Disposition pending results and clinical course. Lab Data Lab results reviewed: Yes I reviewed the patient's lab results. Labs: Laboratory Tests Range/Units 05/20/24 05/20/24 05:33 06:00 WBC (4.4-10.8) 10^3/uL 4.32 L RBC (3.93-5.22) 10^6/uL 4.39 Hgb (11.2-15.7) g/dL 14.4 Hct (36.0-46.0) % 45.5 MCV (80-95) fL 104 H MCH (27.0-33.0) pg 32.8 MCHC (32.0-36.0) % 31.6 L RDW (11.7-14.6) % 13.0 Plt Count (130-400) 10^3/uL 141 MPV (8.0-11.0) fL 10.1 Immature Gran % % 0.2 Neutrophils % % 72.0 Lymphocytes % % 14.8 Monocytes % % 11.6 Eosinophils % % 0.7 Basophils % % 0.7 Nucleated RBC % (0.0-0.3) % 0.0 Absolute Neutrophils (1.2-6.7) 10^3/uL 3.11 Absolute Lymphocytes (1.2-3.4) 10^3/uL 0.64 L Absolute Monocytes (0.1-0.8) 10^3/uL 0.50 Absolute Eosinophils (0.0-0.7) 10^3/uL 0.03 Absolute Basophils (0.0-0.2) 10^3/uL 0.03 VBG pH (7.31-7.41) 7.35 VBG pCO2 (41-51) mmHg 56 H VBG pO2 mmHg 24 VBG HCO3 (23-28) mmol/L 31 H VBG Total CO2 (24-29) mmol/L 28 VBG O2 Saturation % 40 VBG Base Excess (-2-3) mmol/L 5 H Sodium (136-145) mmol/L 145 Potassium (3.5-5.1) mmol/L 3.7 Chloride (98-107) mmol/L 107 Carbon Dioxide (21.0-32.0) mmol/L 32.5 H Anion Gap (3-11) mmol/L 5.5 BUN (7-18) mg/dL 6 L Creatinine (0.55-1.02) mg/dL 0.9 Est GFR (CKD-EPI 2020) (mL/min/1.73m2) 67.92 Glucose (74-106) mg/dL 121 H Calcium (8.5-10.1) mg/dL 9.3 Total Bilirubin (0.2-1.0) mg/dL 0.47 AST (15-37) U/L 31 ALT (14-59) U/L 34 Alkaline Phosphatase (46-116) U/L 137 H Troponin I (<or=51) ng/L 12 NT-Pro-B Natriuret Pep (<300) pg/mL 180 Total Protein (6.4-8.2) g/dL 6.8 Albumin (3.4-5.0) g/dL 3.4 COVID-19 Source N SARS-CoV-2 (PCR) (Negative) Negative Influenza Type A (PCR) (Negative) Positive A Influenza Type B (PCR) (Negative) Negative RSV (PCR) (Negative) Negative Quality:SDOH Health Related Social Needs: Health related social needs details none PFSH All Active Problems Rash (Acute) Pre-syncope (Acute) Post-nasal drainage (Acute) SOB (shortness of breath) (Acute) Hyperlipidemia LDL goal <130 (Acute) Hip pain, right (Acute) Elevated serum alkaline phosphatase level (Acute) Chronic insomnia (Acute) Hyperkalemia (Acute) Pain in left hip (Acute) Low back pain (Acute) Normal colonoscopy (Acute) Colitis (Acute) Dysphagia (Acute) DVT (deep venous thrombosis) (Acute 10/29/14) unprovoked DVT right leg 06/01, now on apixaban per 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 Sotomayor 09/13/13 Irritable colon (Acute) Myotonic muscular dystrophy (Acute) Polyp of colon (Acute) 01/14/11; COLONOSCOPY; TUBULAR ADENOMA Medical History Cataract GERD (gastroesophageal reflux disease) SHANNAN (obstructive sleep apnea) Granuloma annulare Surgical History Tonsillectomy Vaginal hysterectomy partial colectomy due to endometriosis Colonoscopy - [facility] (01/22/16) 01/14/11; DR. FAUSTIN Cholecystectomy Extraction of cataract (02/01/13) 02/01/13; RIGHT 01/27/15; LEFT Family History Mother , 85 Essential hypertension Heart disease Hyperlipidemia Father , 71 Neoplasm LUNG Myotonic muscular dystrophy Brother Essential hypertension Hyperlipidemia Diverticulosis Grandfather Heart disease Myocardial infarction Grandmother Heart disease Grandmother Myotonic muscular dystrophy STRONG PATERNAL HISTORY Myotonic muscular dystrophy UNCLES, AUNTS, BROTHERS AND COUSINS Brother No problems noted. Brother High cholesterol Social History (Updated 02/02/24 @ 13:06 by Kari Peña) Smoking/Tobacco Use Status: Former Tobacco Use tobacco type: cigarettes Quit D ate: 03/05/07 Tobacco: How many years used: 40 Second Hand Exposure: Yes Smoking risk assessment performed?: Yes Alcohol Intake: current Alcohol Intake frequency: holidays/special occasions only Alcohol type: beer Drug use: Never Substance use type: does not use Counseling given: No Adopted: No Caregiver/Support person: No Household members: none Housing: house Number of Children: 0 number of grandchildren: 0 Communication Needs: None Education Level: college Details: [employer]. Degree in Accounting Do you need help understanding health information?: Rarely current occupation: Retired Pets and animals: Yes Pets and animals: cat(s) and dog(s) Sexually active: No Current gender identity: female What is your relationship status?: never How often do you talk on the phone with friends or family?: three or more times per week How often do you get together with friends or relatives?: once per week How often do you attend confucianist or scientologist services?: 1-3 times per year Do you belong to any clubs or organized social groups?: no Panel score (0-1 are the most socially isolated patients): 1 What type of physical activity do you participate in: other Details: House work Duration: 45-60 minutes/day Frequency: 3-4 times per week Veda/Mosque: No preference Special veda needs: No Seatbelt use: always Helmet use: No Drive intox or ride w/intox horse and wagon driver: No Firearms in home: No Do you feel safe at home: Yes Do you feel safe in your relationship?: Yes
[2024-05-20 06:37] LABS: ALT 34 U/L (14-59); AST 31 U/L (15-37); Albumin 3.4 g/dL (3.4-5.0); Alkaline Phosphatase 137 U/L (46-116); Anion Gap 5.5 mmol/L (3-11); BUN 6 mg/dL (7-18); Bilirubin, Total 0.47 mg/dL (0.2-1.0); CO2 32.5 mmol/L (21.0-32.0); CREATININE 0.9 mg/dL (0.55-1.02); Calcium 9.3 mg/dL (8.5-10.1); Chloride 107 mmol/L (98-107); Estimated GFR 67.92 (mL/min/1.73m2); Glucose 121 mg/dL (74-106); NT-proBNP 180 pg/mL (<300); Potassium 3.7 mmol/L (3.5-5.1); Sodium 145 mmol/L (136-145); Total Protein 6.8 g/dL (6.4-8.2); Troponin I 12 ng/L (<or=51)
[2024-05-20 06:45] LABS: D-Dimer 433 ng/mlFEU (<500)
--- NOTE | 2024-05-20 07:09 | DI.VRAD_ITS ---
PROCEDURE INFORMATION: Exam: XR Chest Exam date and time: 05/20/2024 6:50 AM Age: 73 years old Clinical indication: Shortness of breath; SOB TECHNIQUE: Imaging protocol: Radiologic exam of the chest. Views: 2 views. COMPARISON: CT CHEST WO 02/10/2023 8:45 AM FINDINGS: Lungs: No focal consolidation seen. Pleural spaces: No large pleural effusion seen. Heart/Mediastinum: No cardiomegaly. Bones/joints: No acute abnormality. IMPRESSION: No acute findings to explain reported symptoms. Dictated and Authenticated by: Julia Villalobos MD. Orderin Leo Rodarte MD
[2024-05-20 07:39] LABS: Troponin I 10 ng/L (<or=51)
--- NOTE | 2024-05-20 07:52 | W.EDPROG ---
Date of service: 05/20/24 Time of Service: 07:52 Medical Decision Making I received signout on this 73-year-old female in the emergency department in setting of shortness of breath. She was found to be febrile swab positive for the flu. She has received IV fluids. She had a negative D-dimer and 2 reassuring troponins. She is pending urinalysis. Will complete ambulatory trial and reassess. 8:15am Urinalysis reassuring. I reassessed this patient. She was feeling improved. She ambulated and tolerated p.o. in the ED. She was discharged with an empiric trial of expectant outpatient management. Quality:SDOH Health Related Social Needs: Health related social needs details none Discharge Plan Disposition Patient Disposition: Home Discharge Details Clinical Impression: Influenza Primary Care Provider: Marino Swartz ED Provider: Mian Rizo [place] Meds and New Rx's Prescriptions: Continued rosuvastatin [Crestor] 5 mg tablet 5 mg PO DAILY Qty: 90 3RF omeprazole 20 mg capsule,delayed release(DR/EC) 20 mg PO DAILY Qty: 90 3RF Eliquis 5 mg tablet 5 mg PO BID Qty: 180 3RF Discharge Instructions Additional Instructions: You are seen in the emergency department in the setting of shortness of breath. Your blood work shows that you have no injury to your kidneys. You have no signs of heart attack. Please return to the emergency department if you pass out. Otherwise please follow-up with your primary care provider next week. Discharge Data Discharge Date/Time-TO BE ENTERED AT DEPARTURE: 05/20/24 09:36
[2024-05-20 08:12] LABS: Bilirubin Negative (Negative); Blood Negative (Negative); Clarity Clear (Clear); Glucose Negative (Negative); Ketones Negative (Negative); Leukocyte Esterase Negative (Negative); Nitrite Negative (Negative); Urobilinogen 0.2 mg/dL (Up to 0.2); pH 5.5 (5-8)
[2024-05-20] MEDS: Acetaminophen 500 MG TAB 1000 MG PO (09:12)
== END 2024-05-20 09:36 | disposition home or self-care (01) ==
PROVIDERS: Student in an Organized Health Care Education/Training Program; Emergency Provider Emergency Medicine; PCP Family Medicine
DX: J09.X2 Influenza due to identified novel influenza A virus with other respiratory manifestations (principal); R06.02 Shortness of breath; R42 Dizziness and giddiness; R05.1 Acute cough
CPT/HCPCS: 00123; 36415; 80053; 82805; 87637; 93005; 94640; 96360; 99284; 71046; 81003; 83880; 84484; 85025; 85379; 93010; J7620

== ENCOUNTER 2024-12-31 03:38 | Outpatient (CLI) | payer MEDICARE, SELFPAY ==
--- NOTE | 2024-12-31 06:15 | DI.CTLCSR_ITS ---
Exam(s) CT CHEST LUNG CANCER SCREEN EXAM: CT CHEST LUNG CANCER SCREEN CLINICAL HISTORY: Screening for lung cancer,personal h/o nicotine dependence,z87.891 TECHNIQUE: Imaging Protocol: Axial computed tomography images with coronal and sagittal reformatted images were created and reviewed. Lung Computer Aided Detection (CAD) was utilized. COMPARISON: CT CT CHEST WO from 02/10/2023 CR,XR XR CHEST 2V PA LATERAL from 05/20/2024 FINDINGS: Tracheobronchial tree: Patent where visualized. No bronchiectasis. Pulmonary parenchyma: No consolidation or dominant measurable mass. No architectural distortion. Lung Nodules: There are no suspicious pulmonary nodules. Mediastinum and Maddison: No dominant adenopathy or fluid collection. The esophagus is unremarkable. Thyroid gland: Unremarkable. Lymph nodes: Unremarkable. Pleura: No effusion or pneumothorax. Heart: The heart is not dilated. No coronary artery calcifications are seen. No pericardial effusion. Aorta: Thoracic aorta non-dilated.Atherosclerotic calcification is present. Upper abdomen: Unremarkable. Soft Tissues: Unremarkable. Bones: Within normal limits. IMPRESSION: There are no suspicious pulmonary nodules. Lung RADS Cat 1 - Negative: No nodules and definitely benign nodules Lung-RADS 1.0 CATEGORIES: Category 0 - Prior chest CT exam(s) being located for comparison. Category 1 - Annual screening in 12 months. No nodules or definitely benign nodules. Category 2 - Annual screening in 12 months. Benign appearance. Nodules with low likelihood of becoming active cancer. Category 3 - 6-month follow-up. Probably benign. Short-term follow-up suggested. Nodules with low likelihood of becoming active cancer. Category 4A - 3-month follow-up and CT/PET if >8 mm in size. Suspicious finding. Findings which require additional testing. Category 4B - Findings which require additional testing and tissue sampling. Suspicious finding. Category 4X - Category 3 or 4 nodules with additional features or imaging findings that increases the suspicion of malignancy. Modifier S- Potentially clinically significant finding. (Non lung cancer) RADIATION DOSE DELIVERED: 48.1mGy.cm Total DLP 48.1mGy.cmTotal DLP DATA REPOSITORY: All CT scans at this facility are submitted to the National Radiology Data Registry (NRDR) Dose Index Registry (DIR) with the [employer] (ACR). RADIATION OPTIMIZATION: All CT scans at this facility use at least one of these dose optimization techniques: automated exposure control; mA and/or kV adjustment per patient size (includes targeted exams where dose is matched to clinical indication); or iterative reconstruction.
--- NOTE | 2024-12-31 12:48 | DI.MAMMO_ITS ---
Exam(s) MAMMO SCREENING EXAM: MAMMO SCREENING CLINICAL HISTORY: screening,z12.39 TECHNIQUE: Bilateral full field digital CC and MLO mammographic images were obtained with 3D tomosynthesis and utilizing computer aided detection (CAD). COMPARISON: Comparison is made with prior examinations. FINDINGS: Masses/Architectural Distortion: No suspicious masses or areas of architectural distortion are present. Microcalcifications: No suspicious pleomorphic-type are seen. Skin Thickening/Nipple Retraction: None. IMPRESSION: 1. No significant interval change with no specific features of malignancy noted. 2. Unless there is more urgent need, screening mammography is recommended, as per [place] [employer] guidelines. BI-RADS Category 1 - Negative Breast Density - Category C - The breast are heterogeneously dense, which may obscure small masses. Breast density Category C or D implies that the patient has dense breast tissue. Dense breast tissue can make it harder to find cancer on a mammogram. Dense breast tissue is also associated with an increased risk of breast cancer. This information about the result of the mammogram report was provided to the patient to raise their awareness. Use this report when you speak with the patient about their risks for breast cancer, which includes their family history. At that time, you may recommend additional screening tests (Ultrasound or MRI) as these tests may add significant information. A negative radiographic report should not delay biopsy if a dominant or clinically suspicious mass is present. Up to ten percent of cancers are not identified on mammography. A negative report may reinforce clinical impression. Adenosis and dense breasts may obscure an underlying neoplasm. False positive reports average 6 to 10%. Patient will receive a letter notifying them of these results.
== END 2024-12-31 03:58 ==
LOC: DI 03:38
PROVIDERS: PCP Family Medicine; Visit Provider Family Medicine
DX: Z12.31 Encounter for screening mammogram for malignant neoplasm of breast (principal); Z87.891 Personal history of nicotine dependence; Z12.2 Encounter for screening for malignant neoplasm of respiratory organs
CPT/HCPCS: 71271; 77063; 77067

== ENCOUNTER 2025-02-20 00:30 | Outpatient (CLI) | payer MEDICARE, SELFPAY ==
[2025-02-20 14:20] LABS: Hemoglobin A1C 5.7 % (<5.7)
[2025-02-20 14:33] LABS: ALT 31 U/L (14-59); AST 27 U/L (15-37); Albumin 3.6 g/dL (3.4-5.0); Alkaline Phosphatase 153 U/L (46-116); Anion Gap 5.4 mmol/L (3-11); BUN 9 mg/dL (7-18); Bilirubin, Total 0.4 mg/dL (0.2-1.0); CO2 32.6 mmol/L (21.0-32.0); Calcium 9.6 mg/dL (8.5-10.1); Chloride 105 mmol/L (98-107); Cholesterol 186 mg/dL (<200); Glucose 106 mg/dL (74-106); HDL Cholesterol 82 mg/dL (>or=50); Potassium 4.0 mmol/L (3.5-5.1); Sodium 143 mmol/L (136-145); Total Protein 7.4 g/dL (6.4-8.2)
== END 2025-02-20 00:31 | disposition home or self-care (01) ==
LOC: LOS 00:30
PROVIDERS: PCP Family Medicine; Visit Provider Nurse Practitioner Family
DX: R73.01 Impaired fasting glucose (principal); Z00.00 Encounter for general adult medical examination without abnormal findings; K21.9 Gastro-esophageal reflux disease without esophagitis; E78.5 Hyperlipidemia, unspecified; I82.409 Acute embolism and thrombosis of unspecified deep veins of unspecified lower extremity; I26.99 Other pulmonary embolism without acute cor pulmonale
CPT/HCPCS: 36415; 80053; 80061; 83036

== ENCOUNTER → 2025-02-27 02:38 | Outpatient (CLI) | payer MEDICARE, SELFPAY ==
--- NOTE | 2025-02-27 08:30 | DI.US_ITS ---
Exam(s) US BREAST LT COMPLETE US BREAST RT COMPLETE EXAM: US BREAST BILATERAL COMPLETE CLINICAL HISTORY: N63.11,N63.0 Mass upper outer quadrant, RT Breast lump upper area 11 oclock. TECHNIQUE: Complete ultrasound of both breasts was performed including all 4 quadrants, the retroareolar regions and the axillary regions. COMPARISON: Prior mammograms were reviewed. FINDINGS: There is no evidence of solid or significant cystic lesions in all 4 quadrants of both breasts. At the 12-1 o'clock peripheral region of the left breast there is a 7 x 4 millimeter benign lipoma which appears to correspond to what this patient is feeling. No other significant left breast findings. There are no focal ultrasound findings in the area 10 o'clock position of the right breast where the patient apparently feels something. In both axillary regions is negative for significant adenopathy. IMPRESSION: Solitary benign 7 x 4 mm lipoma at the peripheral 12-1 o'clock position of the left breast, this corresponding to what the patient is being. No evidence of solid or significant cystic lesion either breast. BI-RADS Category 2 - Benign Findings Breast Density - Category C - The breast are heterogeneously dense, which may obscure small masses. Breast density Category C or D implies that the patient has dense breast tissue. Dense breast tissue can make it harder to find cancer on a mammogram. Dense breast tissue is also associated with an increased risk of breast cancer. This information about the result of the mammogram report was provided to the patient to raise their awareness. Use this report when you speak with the patient about their risks for breast cancer, which includes their family history. At that time, you may recommend additional screening tests (Ultrasound or MRI) as these tests may add significant information. A negative radiographic report should not delay biopsy if a dominant or clinically suspicious mass is present. Up to ten percent of cancers are not identified on mammography. A negative report may reinforce clinical impression. Adenosis and dense breasts may obscure an underlying neoplasm. False positive reports average 6 to 10%. Patient will receive a letter notifying them of these results.
== END ==
LOC: DI 02:38
PROVIDERS: PCP Family Medicine; Visit Provider Nurse Practitioner Family
DX: N63.22 Unspecified lump in the left breast, upper inner quadrant (principal); N63.11 Unspecified lump in the right breast, upper outer quadrant
CPT/HCPCS: 76642